=== PATIENT | male | born 1960 | race Caucasian/White ===

== ENCOUNTER 2019-06-12 10:25 | Emergency (ER) | payer MEDICAID, MEDICARE ==
[~2019-06-12] VITALS: Ht 200.7 cm; Wt 81.6 kg
[2019-06-12 11:37] LABS: Basophils # (auto) 0.1 uL; Basophils % (auto) 1.2 % (0.0-2.0); Eosinophils # (auto) 0.2 uL; Eosinophils % (auto) 4.8 % (0.0-7.0); Hematocrit 34.6 % (41.0-53.0); Hemoglobin 11.6 g/dL (13.5-17.5); Lymphocytes # (auto) 1.1 uL; Lymphocytes % (auto) 22.8 % (10.0-50.0); Mean Corpuscular Hemoglobin 31.8 pg (28.0-32.0); Mean Corpuscular Hgb Conc. 33.5 g/dL (32.0-36.0); Mean Corpuscular Volume 94.7 fL (80.0-100.0); Monocytes # (auto) 0.6 uL; Monocytes % (auto) 12.4 % (0.0-12.0); Neutrophils # (auto) 2.8 uL; Neutrophils % (auto) 58.8 % (37.0-80.0); Nucleated Red Blood Cells % 0.1 %; Platelet Count (auto) 224 10^3/uL (140-450); Red Blood Cells 3.66 10^6/uL (4.5-5.90); White Blood Cell 4.8 10^3/uL (4.4-10.8)
[2019-06-12 12:01] LABS: Albumin 2.7 g/dL (3.4-5.0); Calcium 8.3 mg/dL (8.5-10.1); Potassium 3.4 mmol/L (3.5-5.1)
[2019-06-12 12:03] LABS: BUN/Creatinine Ratio 25.4; Bilirubin, Total 0.2 mg/dL (0.2-1.0); Total Protein 6.7 g/dL (6.4-8.2)
[2019-06-12 16:25] LABS: Basophils # (auto) 0 uL; Eosinophils # (auto) 0.2 uL; Hemoglobin 10.9 g/dL (13.5-17.5); Lymphocytes # (auto) 0.9 uL; Lymphocytes % (auto) 20.8 % (10.0-50.0); Mean Corpuscular Hemoglobin 31.3 pg (28.0-32.0); Mean Corpuscular Hgb Conc. 33.1 g/dL (32.0-36.0); Mean Corpuscular Volume 94.3 fL (80.0-100.0); Monocytes # (auto) 0.7 uL; Monocytes % (auto) 15.5 % (0.0-12.0); Neutrophils # (auto) 2.7 uL; Neutrophils % (auto) 58.7 % (37.0-80.0); Nucleated Red Blood Cells % 0.1 %; Platelet Count (auto) 207 10^3/uL (140-450); Red Blood Cells 3.49 10^6/uL (4.5-5.90); Red Cell Distribution Width 14.5 % (11.8-14.3); White Blood Cell 4.6 10^3/uL (4.4-10.8)
[2019-06-12 16:42] LABS: Albumin 2.4 g/dL (3.4-5.0); Magnesium 1.3 mg/dL (1.6-2.6)
[2019-06-12 16:45] LABS: Bilirubin, Total 0.2 mg/dL (0.2-1.0); Total Protein 6.1 g/dL (6.4-8.2)
[2019-06-12 17:03] LABS: Potassium 2.9 mmol/L (3.5-5.1)
[2019-06-12] MEDS ORDERED: POTASSIUM CHL 20 Meq TABLET PO ONE ×2 (19:15)
[2019-06-12 20:16] VITALS: BP 128/89
== END 2019-06-13 00:24 | disposition home or self-care (01) ==
LOC: EDUNIT# 10:25 → EDBD 10:25 → ER 10:45
DX: S96.911A Strain of unspecified muscle and tendon at ankle and foot level, right foot, initial encounter (principal); M25.551 Pain in right hip; E87.6 Hypokalemia; M79.605 Pain in left leg; D64.9 Anemia, unspecified; M81.0 Age-related osteoporosis without current pathological fracture; X58.XXXA Exposure to other specified factors, initial encounter; Y93.89 Activity, other specified; Y92.149 Unspecified place in prison as the place of occurrence of the external cause; Y99.8 Other external cause status
CPT/HCPCS: 36415; 72192; 73502; 73610; 80053; 83735; 84132; 85025; 93005; 93971

== ENCOUNTER 2019-06-17 15:36 | Emergency (ER) | payer MEDICARE, MEDICAID ==
[~2019-06-17] VITALS: Ht 170.2 cm; Wt 95.3 kg
[2019-06-17 17:41] LABS: Hematocrit 30.7 % (41.0-53.0); Hemoglobin 10.3 g/dL (13.5-17.5); Mean Corpuscular Hemoglobin 31.5 pg (28.0-32.0); Mean Corpuscular Hgb Conc. 33.5 g/dL (32.0-36.0); Mean Corpuscular Volume 94.1 fL (80.0-100.0); Platelet Count (auto) 242 10^3/uL (140-450); Red Blood Cells 3.26 10^6/uL (4.5-5.90); Red Cell Distribution Width 15.1 % (11.8-14.3); White Blood Cell 5.2 10^3/uL (4.4-10.8)
[2019-06-17 17:42] LABS: Basophils % (manual) 0 (0.0-2.0); Blast Cells 0; Metamyelocytes % 0; Myelocytes % 0; Promyelocytes % 0; Reactive Lymphocytes 0
[2019-06-17 18:01] LABS: Albumin 2.4 g/dL (3.4-5.0); Calcium 7.7 mg/dL (8.5-10.1); Magnesium 1.4 mg/dL (1.6-2.6)
[2019-06-17 18:04] LABS: BUN/Creatinine Ratio 21.1; Bilirubin, Total 0.2 mg/dL (0.2-1.0)
[2019-06-17 18:11] LABS: Band Neutrophils % (manual) 1; Eosinophils % (manual) 2 (0-7); Lymphocytes % (manual) 16 (10.0-50.0); Monocytes % (manual) 18 (0-12)
[2019-06-17] MEDS ORDERED: POTASSIUM CHL 20 Meq TABLET PO ONE (18:45)
[2019-06-17] MEDS ORDERED: MAGNESIUM SULFATE 1GM/100ML 100 ML IV ONE (18:45)
[2019-06-17 22:00] VITALS: BP 125/71
== END 2019-06-17 23:07 | disposition home or self-care (01) ==
LOC: EDBD 15:36 → ER 15:43
DX: R53.1 Weakness (principal); M25.551 Pain in right hip; M25.571 Pain in right ankle and joints of right foot; E87.8 Other disorders of electrolyte and fluid balance, not elsewhere classified; F17.210 Nicotine dependence, cigarettes, uncomplicated; Z88.0 Allergy status to penicillin; Y04.2XXA Assault by strike against or bumped into by another person, initial encounter; Y93.89 Activity, other specified; Y92.89 Other specified places as the place of occurrence of the external cause; Y99.8 Other external cause status
CPT/HCPCS: 36415; 71045; 72192; 73700; 80053; 83735; 85007; 85027; 96365; 99284; J3475

== ENCOUNTER 2019-07-18 22:36 | Emergency (ER) | payer MEDICARE, MEDICAID ==
[~2019-07-18] VITALS: Ht 190.5 cm; Wt 113.4 kg
[2019-07-18 23:35] LABS: Hematocrit 37.4 % (41.0-53.0); Hemoglobin 12.1 g/dL (13.5-17.5); Mean Corpuscular Hgb Conc. 32.3 g/dL (32.0-36.0); Platelet Count (auto) 208 10^3/uL (140-450); Red Blood Cells 3.89 10^6/uL (4.5-5.90); Red Cell Distribution Width 16.2 % (11.8-14.3); White Blood Cell 5.5 10^3/uL (4.4-10.8)
[2019-07-18] MEDS ORDERED: ALBUTEROL SULF 2.5 MG/0.5ML(0.5%) NEB SOLN NEB STA (23:35)
[2019-07-18 23:37] LABS: Basophils % (manual) 0 (0.0-2.0); Blast Cells 0; Metamyelocytes % 0; Myelocytes % 0; Promyelocytes % 0; Reactive Lymphocytes 0
[2019-07-18] MEDS ORDERED: IPRATROPIUM BROM 0.5 MG/2.5ML INH SOL NEB ONE (23:45)
[2019-07-18 23:49] LABS: Calcium 8.6 mg/dL (8.5-10.1); Magnesium 1.5 mg/dL (1.6-2.6); Potassium 3.6 mmol/L (3.5-5.1)
[2019-07-18 23:54] LABS: Bilirubin, Total 0.2 mg/dL (0.2-1.0); Total Protein 6.9 g/dL (6.4-8.2)
[2019-07-19 00:11] LABS: Band Neutrophils % (manual) 2; Eosinophils % (manual) 3 (0-7); Lymphocytes % (manual) 24 (10.0-50.0); Monocytes % (manual) 17 (0-12)
[2019-07-19 07:35] VITALS: BP 118/74
== END 2019-07-19 08:55 | disposition home or self-care (01) ==
LOC: EDBD 22:36 → ER 22:38
DX: J45.901 Unspecified asthma with (acute) exacerbation (principal); K21.9 Gastro-esophageal reflux disease without esophagitis; F17.210 Nicotine dependence, cigarettes, uncomplicated
CPT/HCPCS: 36415; 71045; 80053; 83735; 83880; 84484; 85007; 85027; 93005; 94640; 99284; J7611; J7644

== ENCOUNTER 2019-07-23 11:54 | Emergency (ER) | payer MEDICARE, MEDICAID ==
[~2019-07-23] VITALS: Ht 188 cm; Wt 99.8 kg
[2019-07-23 12:02] VITALS: BP 148/81
[2019-07-23] MEDS ORDERED: ACETAMINOPHEN 325 MG TAB PO ONE (12:30)
== END 2019-07-23 12:44 | disposition home or self-care (01) ==
LOC: EDBD 11:54 → ER 12:00
DX: K21.9 Gastro-esophageal reflux disease without esophagitis (principal); G44.209 Tension-type headache, unspecified, not intractable; F20.9 Schizophrenia, unspecified; F17.210 Nicotine dependence, cigarettes, uncomplicated; F32.9 Major depressive disorder, single episode, unspecified; Z88.0 Allergy status to penicillin; Z76.0 Encounter for issue of repeat prescription

== ENCOUNTER 2019-08-01 15:28 | Emergency (ER) | payer MEDICAID, MEDICARE ==
[~2019-08-01] VITALS: Ht 200.7 cm; Wt 99.8 kg
[2019-08-01] MEDS ORDERED: KETOROLAC TROMETH 60MG/2ML VIAL IM ONE (15:45)
[2019-08-01 16:01] VITALS: BP 138/80
== END 2019-08-01 20:07 | disposition home or self-care (01) ==
LOC: ER 15:28 → EDBD 15:28 → ER 20:07
DX: G89.4 Chronic pain syndrome (principal); F20.9 Schizophrenia, unspecified; M25.551 Pain in right hip; K21.9 Gastro-esophageal reflux disease without esophagitis; F17.210 Nicotine dependence, cigarettes, uncomplicated; Z88.0 Allergy status to penicillin; Z91.041 Radiographic dye allergy status
CPT/HCPCS: 73502; 96372

== ENCOUNTER 2019-09-29 18:15 | Inpatient (IN) | payer MEDICARE, MEDICAID ==
[~2019-09-29] VITALS: Ht 193 cm; Wt 98.6 kg
[2019-09-29 18:51] LABS: Basophils # (auto) 0.1 10 ^3/uL (0-0.2); Basophils % (auto) 0.7 % (0.0-2.0); Eosinophils # (auto) 0.5 10 ^3/uL (0-0.8); Hematocrit 39.8 % (41.0-53.0); Hemoglobin 12.7 g/dL (13.5-17.5); Lymphocytes # (auto) 1.2 10 ^3/uL (0.4-5.4); Lymphocytes % (auto) 10.3 % (10.0-50.0); Mean Corpuscular Hemoglobin 28.6 pg (28.0-32.0); Mean Corpuscular Hgb Conc. 31.9 g/dL (32.0-36.0); Mean Corpuscular Volume 89.6 fL (80.0-100.0); Monocytes # (auto) 1.4 10 ^3/uL (0-1.3); Monocytes % (auto) 12.4 % (0.0-12.0); Neutrophils # (auto) 8.2 10 ^3/uL (1.6-8.6); Neutrophils % (auto) 72.6 % (37.0-80.0); Platelet Count (auto) 154 10^3/uL (140-450); Red Blood Cells 4.44 10^6/uL (4.5-5.90); Red Cell Distribution Width 16.1 % (11.8-14.3); White Blood Cell 11.3 10^3/uL (4.4-10.8)
[2019-09-29] MEDS ORDERED: ETOMIDATE (2MG/ML) 20ML VIAL IV ONE (19:00)
[2019-09-29] MEDS ORDERED: SUCCINYLCHOLINE CHLORIDE 20 MG/ML 10ML VIAL IV ONE (19:00)
[2019-09-29 19:06] LABS: INR 1.47 (0.9-1.15); Partial Thromboplastin Time 30.7 sec (23.64-32.05)
[2019-09-29 19:07] LABS: Albumin 2.7 g/dL (3.4-5.0); BUN/Creatinine Ratio 18.1; Calcium 8.2 mg/dL (8.5-10.1); Magnesium 1.7 mg/dL (1.6-2.6); Potassium 3.2 mmol/L (3.5-5.1)
[2019-09-29 19:12] LABS: Bilirubin, Total 0.3 mg/dL (0.2-1.0); Total Protein 6.8 g/dL (6.4-8.2)
[2019-09-29] MEDS ORDERED: methylPREDNISolone SOD SUCC 125 MG/2 ML VL IV ONE (19:15)
[2019-09-29] MEDS ORDERED: cefTRIAXone 1GM/50ML D5W 50 ML IV ONE (21:00)
[2019-09-29] MEDS ORDERED: AZITHROMYCIN 500MG/ 250ML 250 ML IV ONE (21:00)
[2019-09-29] MEDS ORDERED: SODIUM CHLORIDE 0.9% 1,000 ML IV SCH (21:14)
[2019-09-29] MEDS ORDERED: ONDANSETRON HCL 4 MG/2 ML VIAL IV PRN (21:15)
[2019-09-29] MEDS ORDERED: ACETAMINOPHEN 500 MG TAB PO PRN (21:15)
[2019-09-29] MEDS ORDERED: DOCUSATE SOD 100 MG CAP PO PRN (21:15)
[2019-09-29] MEDS ORDERED: MORPHINE SULFATE 4 MG/ML SYR/VIAL IV PRN (21:15)
[2019-09-29] MEDS ORDERED: ALBUTEROL SULFATE 90 MCG MDI IN ONE (21:49)
[2019-09-29 21:50] VITALS: BP 183/90
[2019-09-29] MEDS ORDERED: ALBUTEROL SULF HFA 90MCG INH 200DOSE IN SCH ×2 (22:00)
[2019-09-29] MEDS: ALBUTEROL SULF HFA 90MCG INH 200DOSE IN SCH (22:24)
[2019-09-29 23:00] VITALS: BP 145/88
[2019-09-29 23:10] LABS: Urine Bacteria NONE SEEN /hpf (None Seen); Urine Blood Negative /uL (Negative); Urine Specific Gravity 1.007 (1.001-1.035); Urine WBC 2 /hpf (0 - 3)
[2019-09-30] MEDS: POTASSIUM CHL 20MEQ/100ML 100 ML IV SCH ×2 (00:44→03:48)
[2019-09-30] MEDS: MAGNESIUM OXIDE 400 MG TAB PO SCH ×2 (00:44→10:02)
[2019-09-30] MEDS: ALBUTEROL SULF HFA 90MCG INH 200DOSE IN SCH ×2 (06:45→14:18)
[2019-09-30] MEDS: hydrALAZINE HCL 25 MG TAB PO PRN ×3 (07:00→22:00)
[2019-09-30 07:49] LABS: Basophils # (auto) 0 10 ^3/uL (0-0.2); Basophils % (auto) 0.3 % (0.0-2.0); Eosinophils # (auto) 0 10 ^3/uL (0-0.8); Hematocrit 38.2 % (41.0-53.0); Hemoglobin 12.3 g/dL (13.5-17.5); Lymphocytes # (auto) 0.7 10 ^3/uL (0.4-5.4); Lymphocytes % (auto) 5.9 % (10.0-50.0); Mean Corpuscular Hemoglobin 28.8 pg (28.0-32.0); Mean Corpuscular Hgb Conc. 32.3 g/dL (32.0-36.0); Mean Corpuscular Volume 89.2 fL (80.0-100.0); Monocytes # (auto) 0.4 10 ^3/uL (0-1.3); Monocytes % (auto) 3.7 % (0.0-12.0); Neutrophils # (auto) 10.4 10 ^3/uL (1.6-8.6); Neutrophils % (auto) 90.1 % (37.0-80.0); Platelet Count (auto) 160 10^3/uL (140-450); Red Blood Cells 4.28 10^6/uL (4.5-5.90); Red Cell Distribution Width 16.3 % (11.8-14.3); White Blood Cell 11.5 10^3/uL (4.4-10.8)
[2019-09-30 08:00] VITALS: BP 151/83
[2019-09-30 08:05] LABS: Albumin 2.6 g/dL (3.4-5.0); Calcium 8.2 mg/dL (8.5-10.1); Magnesium 1.9 mg/dL (1.6-2.6); Potassium 3.6 mmol/L (3.5-5.1)
[2019-09-30 08:08] LABS: BUN/Creatinine Ratio 21.1; Bilirubin, Total 0.2 mg/dL (0.2-1.0)
[2019-09-30] MEDS ORDERED: ASCORBIC ACID 1,000 MG TAB PO SCH (10:00)
[2019-09-30] MEDS ORDERED: ZINC SULFATE 220mg CAP or TAB PO SCH (10:00)
[2019-09-30] MEDS: CHOLECALCIFEROL (VITD3) 1,000IU=25mCg TAB PO SCH (10:03)
[2019-09-30] MEDS: ENOXAPARIN SOD 40 MG/0.4 ML SYRINGE SC SCH (10:03)
[2019-09-30 13:20] VITALS: BP 139/84
[2019-09-30] MEDS ORDERED: HYDR1CAP27 PO (16:34)
[2019-09-30] MEDS ORDERED: OLAN1TAB19 PO (16:34)
[2019-09-30] MEDS ORDERED: DIPH25CA66 PO (16:34)
[2019-09-30] MEDS ORDERED: MIRT1TAB38 PO (16:34)
[2019-09-30] MEDS ORDERED: MAGN400T21 PO (16:34)
[2019-09-30] MEDS ORDERED: OMEP20TA PO (16:34)
[2019-09-30] MEDS ORDERED: DIVA500T13 PO (16:34)
[2019-09-30] MEDS ORDERED: RISP2TAB59 PO (16:34)
[2019-09-30 17:00] VITALS: BP 155/71
[2019-09-30] MEDS ORDERED: diphenhdrAMINE HCL 25 MG CAP PO PRN (18:00)
[2019-09-30] MEDS: IPRATROPIUM BROM 0.5 MG/2.5ML INH SOL NEB SCH (18:45)
[2019-09-30] MEDS: ALBUTEROL SULF 2.5 MG/0.5ML(0.5%) NEB SOLN NEB SCH (18:45)
[2019-09-30] MEDS: ACETYLCYSTEINE 20%(200MG/ML) SOL 4ML NEB SCH (18:45)
[2019-09-30 19:48] LABS: Alcohol, Urine < 3.0 mg/dL (0-5); Amphetamine Screen, Urine NEGATIVE (NEGATIVE); Barbiturate Scree,Urine NEGATIVE (NEGATIVE); Benzodiazephine Screen, Urine NEGATIVE (NEGATIVE); Cannabinoid Screen, Urine NEGATIVE (NEGATIVE); Cocaine Screen, Urine NEGATIVE (NEGATIVE); Opiate Scree,Urine NEGATIVE (NEGATIVE); Phencyclidine Screen, Urine NEGATIVE (NEGATIVE)
[2019-09-30] MEDS ORDERED: AZITHROMYCIN 500MG/D5WorNS 250ml IV SCH (21:00)
[2019-09-30] MEDS ORDERED: FUROSEMIDE 40 MG/4 ML VIAL IV ONE (21:00)
[2019-09-30] MEDS ORDERED: AZITHROMYCIN 250 MG TAB PO SCH (21:00)
[2019-09-30 21:59] VITALS: BP 166/88
[2019-09-30] MEDS: methylPREDNISolone SOD SUCC 40 MG/ML VL IV SCH (21:59)
[2019-09-30] MEDS ORDERED: ACETYLCYSTEINE 20%(200MG/ML) SOL 4ML NEB SCH (22:00)
[2019-09-30] MEDS: OLANZapine 5 MG TAB PO SCH (22:00)
[2019-09-30] MEDS: MIRTAZAPINE 30 MG TAB PO SCH (22:01)
[2019-09-30] MEDS ORDERED: FUROSEMIDE 100 MG/10ML VIAL IV ONE (22:30)
[2019-10-01] MEDS: ACETYLCYSTEINE 20%(200MG/ML) SOL 4ML NEB SCH ×4 (00:41→18:40)
[2019-10-01] MEDS: ALBUTEROL SULF 2.5 MG/0.5ML(0.5%) NEB SOLN NEB SCH ×4 (00:41→18:39)
[2019-10-01] MEDS: IPRATROPIUM BROM 0.5 MG/2.5ML INH SOL NEB SCH ×4 (00:41→18:40)
[2019-10-01] MEDS: risperiDONE 1 MG TAB PO PRN ×2 (02:29→20:24)
[2019-10-01 05:00] VITALS: BP 137/59
[2019-10-01] MEDS: methylPREDNISolone SOD SUCC 40 MG/ML VL IV SCH ×3 (05:44→21:33)
[2019-10-01] MEDS: FUROSEMIDE 100 MG/10ML VIAL IV SCH ×2 (05:45→17:19)
[2019-10-01 06:15] LABS: Basophils # (auto) 0 10 ^3/uL (0-0.2); Basophils % (auto) 0.2 % (0.0-2.0); Eosinophils # (auto) 0 10 ^3/uL (0-0.8); Hematocrit 37.2 % (41.0-53.0); Hemoglobin 11.9 g/dL (13.5-17.5); Lymphocytes # (auto) 0.6 10 ^3/uL (0.4-5.4); Lymphocytes % (auto) 7.5 % (10.0-50.0); Mean Corpuscular Hemoglobin 28.6 pg (28.0-32.0); Mean Corpuscular Hgb Conc. 31.8 g/dL (32.0-36.0); Mean Corpuscular Volume 89.8 fL (80.0-100.0); Monocytes # (auto) 0.4 10 ^3/uL (0-1.3); Monocytes % (auto) 4.6 % (0.0-12.0); Neutrophils # (auto) 6.9 10 ^3/uL (1.6-8.6); Neutrophils % (auto) 87.7 % (37.0-80.0); Platelet Count (auto) 167 10^3/uL (140-450); Red Blood Cells 4.14 10^6/uL (4.5-5.90); White Blood Cell 7.8 10^3/uL (4.4-10.8)
[2019-10-01 06:32] LABS: BUN/Creatinine Ratio 27.3; Calcium 8.2 mg/dL (8.5-10.1); Potassium 3.5 mmol/L (3.5-5.1)
[2019-10-01 06:58] LABS: Folate (Folic Acid) 18.69 ng/mL (5.38-24)
[2019-10-01 08:59] VITALS: BP 144/83
[2019-10-01] MEDS: ENOXAPARIN SOD 40 MG/0.4 ML SYRINGE SC SCH (09:09)
[2019-10-01] MEDS: levoFLOXacin 750MG 150 ML IV SCH (09:09)
[2019-10-01] MEDS: PANTOPRAZOLE 40 MG TAB PO SCH (09:09)
[2019-10-01] MEDS: CHOLECALCIFEROL (VITD3) 1,000IU=25mCg TAB PO SCH (09:10)
[2019-10-01] MEDS: MAGNESIUM OXIDE 400 MG TAB PO SCH (09:10)
[2019-10-01] MEDS ORDERED: CYANOCOBALAMIN (B-12) 1000 MCG/1 ML VIAL SUBCUT ONE (10:45)
[2019-10-01] MEDS: hydrALAZINE HCL 25 MG TAB PO PRN (11:39)
[2019-10-01 12:38] VITALS: BP 157/86
[2019-10-01 17:00] VITALS: BP 145/93
[2019-10-01 21:00] VITALS: BP 152/94
[2019-10-01] MEDS: OLANZapine 5 MG TAB PO SCH (21:32)
[2019-10-01] MEDS: MIRTAZAPINE 30 MG TAB PO SCH (21:34)
[2019-10-02] VITALS (7 sets, daily range): BP systolic 137–158; BP diastolic 62–94
[2019-10-02] MEDS: ACETYLCYSTEINE 20%(200MG/ML) SOL 4ML NEB SCH ×4 (00:26→18:50)
[2019-10-02] MEDS: ALBUTEROL SULF 2.5 MG/0.5ML(0.5%) NEB SOLN NEB SCH ×4 (00:26→18:49)
[2019-10-02] MEDS: IPRATROPIUM BROM 0.5 MG/2.5ML INH SOL NEB SCH ×4 (00:26→18:49)
[2019-10-02] MEDS: hydrOXYzine 25 MG TAB or CAP PO PRN ×2 (04:15→21:36)
[2019-10-02] MEDS: methylPREDNISolone SOD SUCC 40 MG/ML VL IV SCH ×3 (05:31→21:34)
[2019-10-02] MEDS: FUROSEMIDE 100 MG/10ML VIAL IV SCH ×2 (05:33→17:30)
[2019-10-02 07:06] LABS: RPR Non Reactive (Non Reactive)
[2019-10-02] MEDS: CHOLECALCIFEROL (VITD3) 1,000IU=25mCg TAB PO SCH (10:03)
[2019-10-02] MEDS: levoFLOXacin 750MG 150 ML IV SCH (10:03)
[2019-10-02] MEDS: CYANOCOBALAMIN 500 MCG TAB PO SCH (10:04)
[2019-10-02] MEDS: ENOXAPARIN SOD 40 MG/0.4 ML SYRINGE SC SCH (10:04)
[2019-10-02] MEDS: PANTOPRAZOLE 40 MG TAB PO SCH (10:04)
[2019-10-02] MEDS: MAGNESIUM OXIDE 400 MG TAB PO SCH (10:05)
[2019-10-02] MEDS: MORPHINE SULF INJ 2 MG/ML SYRINGE 1ML IV PRN (10:05)
[2019-10-02] MEDS ORDERED: VANCOMYCIN PER PHARMACY 0 MG IV SCH (11:45)
[2019-10-02] MEDS ORDERED: VANCOMYCIN 1GM/250ML 250 ML IV ONE (12:00)
[2019-10-02] MEDS: risperiDONE 1 MG TAB PO PRN (15:07)
[2019-10-02] MEDS: MEROPENEM 1GM IVPB 100 ML IV SCH ×2 (15:29→22:20)
[2019-10-02] MEDS: VANCOMYCIN 1GM/250ML 250 ML IV SCH (19:54)
[2019-10-02] MEDS: MIRTAZAPINE 30 MG TAB PO SCH (21:35)
[2019-10-02] MEDS: OLANZapine 5 MG TAB PO SCH (21:35)
[2019-10-03] MEDS ORDERED: TEMAZEPAM 15 MG CAP PO ONE (00:45)
[2019-10-03] MEDS ORDERED: LOPERAMIDE HCL 2 MG CAP PO PRN (00:45)
[2019-10-03] MEDS: VANCOMYCIN 1GM/250ML 250 ML IV SCH ×2 (03:59→12:50)
[2019-10-03 05:00] VITALS: BP 139/64
[2019-10-03 05:44] LABS: Basophils # (auto) 0 10 ^3/uL (0-0.2); Basophils % (auto) 0.3 % (0.0-2.0); Eosinophils # (auto) 0 10 ^3/uL (0-0.8); Hematocrit 39.1 % (41.0-53.0); Hemoglobin 12.6 g/dL (13.5-17.5); Lymphocytes # (auto) 0.9 10 ^3/uL (0.4-5.4); Lymphocytes % (auto) 11.7 % (10.0-50.0); Mean Corpuscular Hemoglobin 28.5 pg (28.0-32.0); Mean Corpuscular Hgb Conc. 32.1 g/dL (32.0-36.0); Mean Corpuscular Volume 88.7 fL (80.0-100.0); Monocytes # (auto) 0.5 10 ^3/uL (0-1.3); Monocytes % (auto) 7.1 % (0.0-12.0); Neutrophils # (auto) 6.1 10 ^3/uL (1.6-8.6); Neutrophils % (auto) 80.9 % (37.0-80.0); Platelet Count (auto) 188 10^3/uL (140-450); Red Blood Cells 4.41 10^6/uL (4.5-5.90); Red Cell Distribution Width 16.1 % (11.8-14.3); White Blood Cell 7.5 10^3/uL (4.4-10.8)
[2019-10-03] MEDS: ALBUTEROL SULF 2.5 MG/0.5ML(0.5%) NEB SOLN NEB SCH ×4 (05:59→18:30)
[2019-10-03] MEDS: ACETYLCYSTEINE 20%(200MG/ML) SOL 4ML NEB SCH ×4 (05:59→18:31)
[2019-10-03] MEDS: IPRATROPIUM BROM 0.5 MG/2.5ML INH SOL NEB SCH ×4 (05:59→18:31)
[2019-10-03 06:14] LABS: Albumin 2.6 g/dL (3.4-5.0); Calcium 8.2 mg/dL (8.5-10.1)
[2019-10-03 06:17] LABS: BUN/Creatinine Ratio 35.6; Bilirubin, Total 0.4 mg/dL (0.2-1.0); Total Protein 6.3 g/dL (6.4-8.2)
[2019-10-03] MEDS: MEROPENEM 1GM IVPB 100 ML IV SCH ×2 (06:22→13:48)
[2019-10-03] MEDS: FUROSEMIDE 100 MG/10ML VIAL IV SCH ×2 (06:22→18:22)
[2019-10-03] MEDS: methylPREDNISolone SOD SUCC 40 MG/ML VL IV SCH ×3 (06:22→21:48)
[2019-10-03 08:45] VITALS: BP_SYST 151; BP_SYST 165; BP_DIAS 104; BP_DIAS 113
[2019-10-03] MEDS: ENOXAPARIN SOD 40 MG/0.4 ML SYRINGE SC SCH (08:54)
[2019-10-03] MEDS: levoFLOXacin 750MG 150 ML IV SCH (08:54)
[2019-10-03] MEDS: CHOLECALCIFEROL (VITD3) 1,000IU=25mCg TAB PO SCH (08:55)
[2019-10-03] MEDS: MAGNESIUM OXIDE 400 MG TAB PO SCH (08:56)
[2019-10-03] MEDS: PANTOPRAZOLE 40 MG TAB PO SCH (08:57)
[2019-10-03] MEDS: hydrALAZINE HCL 25 MG TAB PO PRN (08:57)
[2019-10-03] MEDS: CYANOCOBALAMIN 500 MCG TAB PO SCH (08:57)
[2019-10-03 09:13] LABS: Hepatitis B Surface Antibody Positive
[2019-10-03 09:30] VITALS: BP 147/74
[2019-10-03 09:40] LABS: Hepatitis A Total Antibody Negative
[2019-10-03 10:05] LABS: Hepatitis B Core Total AB Negative; Hepatitis B Surface Antigen Negative (Negative); Hepatitis C Antibody Negative (Negative)
[2019-10-03] MEDS: risperiDONE 1 MG TAB PO PRN ×2 (10:20→21:47)
[2019-10-03 12:45] VITALS: BP 142/84
[2019-10-03] MEDS: hydrOXYzine 25 MG TAB or CAP PO PRN (15:35)
[2019-10-03 16:58] VITALS: BP 144/91
[2019-10-03] MEDS: OLANZapine 5 MG TAB PO SCH (21:48)
[2019-10-03] MEDS: MIRTAZAPINE 30 MG TAB PO SCH (21:48)
[2019-10-03 22:00] VITALS: BP 142/75
[2019-10-04] MEDS: IPRATROPIUM BROM 0.5 MG/2.5ML INH SOL NEB SCH ×4 (00:38→17:55)
[2019-10-04] MEDS: ALBUTEROL SULF 2.5 MG/0.5ML(0.5%) NEB SOLN NEB SCH ×4 (00:38→17:55)
[2019-10-04] MEDS: ACETYLCYSTEINE 20%(200MG/ML) SOL 4ML NEB SCH ×4 (00:42→17:55)
[2019-10-04 05:30] VITALS: BP 122/67
[2019-10-04] MEDS ORDERED: FUROSEMIDE 40 MG/4 ML VIAL ONE (06:30)
[2019-10-04] MEDS: FUROSEMIDE 100 MG/10ML VIAL IV SCH ×2 (06:46→18:19)
[2019-10-04] MEDS: methylPREDNISolone SOD SUCC 40 MG/ML VL IV SCH ×2 (06:46→21:31)
[2019-10-04 09:00] VITALS: BP_SYST 134; BP_SYST 137; BP_DIAS 74
[2019-10-04] MEDS: levoFLOXacin 750MG 150 ML IV SCH (09:29)
[2019-10-04] MEDS: CHOLECALCIFEROL (VITD3) 1,000IU=25mCg TAB PO SCH (09:29)
[2019-10-04] MEDS: CYANOCOBALAMIN 500 MCG TAB PO SCH (09:30)
[2019-10-04] MEDS: MAGNESIUM OXIDE 400 MG TAB PO SCH (09:30)
[2019-10-04] MEDS: PANTOPRAZOLE 40 MG TAB PO SCH (09:30)
[2019-10-04] MEDS: ENOXAPARIN SOD 40 MG/0.4 ML SYRINGE SC SCH (09:30)
[2019-10-04] MEDS ORDERED: ERTAPENEM SOD INJ 1 GM in SODIUM CHL 0.9% 50 ML IV ONE (12:00)
[2019-10-04 13:12] VITALS: BP 149/72
[2019-10-04 17:00] VITALS: BP 128/83
[2019-10-04] MEDS: risperiDONE 1 MG TAB PO PRN (20:01)
[2019-10-04] MEDS: hydrOXYzine 25 MG TAB or CAP PO PRN (20:01)
[2019-10-04] MEDS: OLANZapine 5 MG TAB PO SCH (21:32)
[2019-10-04] MEDS: MIRTAZAPINE 30 MG TAB PO SCH (21:33)
[2019-10-04 22:00] VITALS: BP 149/80
[2019-10-04] MEDS: MORPHINE SULF INJ 2 MG/ML SYRINGE 1ML IV PRN (22:59)
[2019-10-05] MEDS: IPRATROPIUM BROM 0.5 MG/2.5ML INH SOL NEB SCH ×3 (00:15→11:31)
[2019-10-05] MEDS: ALBUTEROL SULF 2.5 MG/0.5ML(0.5%) NEB SOLN NEB SCH ×3 (00:15→11:31)
[2019-10-05] MEDS: ACETYLCYSTEINE 20%(200MG/ML) SOL 4ML NEB SCH ×3 (00:15→11:31)
[2019-10-05] MEDS: FUROSEMIDE 100 MG/10ML VIAL IV SCH (06:18)
[2019-10-05 09:00] VITALS: BP 160/80
[2019-10-05] MEDS: CHOLECALCIFEROL (VITD3) 1,000IU=25mCg TAB PO SCH (09:57)
[2019-10-05] MEDS: ENOXAPARIN SOD 40 MG/0.4 ML SYRINGE SC SCH (09:57)
[2019-10-05] MEDS: methylPREDNISolone SOD SUCC 40 MG/ML VL IV SCH (09:57)
[2019-10-05] MEDS: risperiDONE 1 MG TAB PO PRN (09:58)
[2019-10-05] MEDS: hydrOXYzine 25 MG TAB or CAP PO PRN (09:58)
[2019-10-05] MEDS: PANTOPRAZOLE 40 MG TAB PO SCH (09:58)
[2019-10-05] MEDS: hydrALAZINE HCL 25 MG TAB PO PRN (09:58)
[2019-10-05] MEDS: CYANOCOBALAMIN 500 MCG TAB PO SCH (09:58)
[2019-10-05] MEDS ORDERED: ERTAPENEM SOD INJ 1 GM in SODIUM CHL 0.9% 50 ML IV SCH (10:00)
[2019-10-05] MEDS: MAGNESIUM OXIDE 400 MG TAB PO SCH (10:00)
[2019-10-05 13:00] VITALS: BP 157/93
== END 2019-10-05 13:50 | DRG 177 ==
LOC: ER 18:15 → EDBD 18:15 → OVERFLOW 18:16 → TELE-EAST 23:00 → EAST 23:20 → TELE-EAST 09-30 00:27 → CENTRAL 09-30 13:13
PROVIDERS: ADMIT Hospitalist; ATTEND Internal Medicine
DX: J15.8 Pneumonia due to other specified bacteria (principal); J96.01 Acute respiratory failure with hypoxia; J45.902 Unspecified asthma with status asthmaticus; Z16.12 Extended spectrum beta lactamase (ESBL) resistance; E44.0 Moderate protein-calorie malnutrition; J20.9 Acute bronchitis, unspecified; Z03.818 Encounter for observation for suspected exposure to other biological agents ruled out; F17.210 Nicotine dependence, cigarettes, uncomplicated; F20.9 Schizophrenia, unspecified; J43.9 Emphysema, unspecified; Z71.6 Tobacco abuse counseling; Z88.0 Allergy status to penicillin; Z91.041 Radiographic dye allergy status; Z68.26 Body mass index [BMI] 26.0-26.9, adult
CPT/HCPCS: 36415; 36600; 71045; 71046; 71250; 80048; 80053; 80202; 80307; 81001; 82607; 82728; 82746; 82805; 83605; 83615; 83735; 83880; 84443; 84484; 85025; 85379; 85610; 85730; 86141; 86592; 86703; 86704; 86706; 86708; 86738; 86803; 87040; 87070; 87077; 87186; 87205; 87278; 87340; 87804; 87880; 93005; 93306; 94640; 96365; 96367; 96375; G0378; J0696; J1335; J1956; J2185; J3480

== ENCOUNTER 2019-10-25 22:05 | Inpatient (IN) | payer MEDICARE, MEDICAID ==
[~2019-10-25] VITALS: Ht 200.7 cm; Wt 8.0 kg
[~2019-10-25 22:05] MED LIST: DIPH25CA66 PO; DIVA500T13 PO; HYDR1CAP27 PO; MAGN400T21 PO; MIRT1TAB38 PO; OLAN1TAB19 PO; OMEP20TA PO; RISP2TAB59 PO
[2019-10-25 23:20] LABS: Basophils # (auto) 0 10 ^3/uL (0-0.2); Basophils % (auto) 0.4 % (0.0-2.0); Eosinophils # (auto) 0.5 10 ^3/uL (0-0.8); Eosinophils % (auto) 9.3 % (0.0-7.0); Hematocrit 35.5 % (41.0-53.0); Hemoglobin 11.4 g/dL (13.5-17.5); Lymphocytes # (auto) 1.4 10 ^3/uL (0.4-5.4); Lymphocytes % (auto) 28.2 % (10.0-50.0); Mean Corpuscular Hemoglobin 28.6 pg (28.0-32.0); Mean Corpuscular Hgb Conc. 32.2 g/dL (32.0-36.0); Mean Corpuscular Volume 88.8 fL (80.0-100.0); Monocytes # (auto) 0.7 10 ^3/uL (0-1.3); Monocytes % (auto) 13.5 % (0.0-12.0); Neutrophils # (auto) 2.4 10 ^3/uL (1.6-8.6); Neutrophils % (auto) 48.6 % (37.0-80.0); Nucleated Red Blood Cells % 0.3 %; Platelet Count (auto) 233 10^3/uL (140-450); Red Blood Cells 3.99 10^6/uL (4.5-5.90)
[2019-10-25 23:32] LABS: Albumin 2.8 g/dL (3.4-5.0); BUN/Creatinine Ratio 28.9; Calcium 8.3 mg/dL (8.5-10.1); Potassium 3.8 mmol/L (3.5-5.1)
[2019-10-25 23:35] LABS: Bilirubin, Total 0.4 mg/dL (0.2-1.0); Total Protein 6.3 g/dL (6.4-8.2)
[2019-10-26 00:40] LABS: Urine Bacteria NONE SEEN /hpf (None Seen); Urine Blood Negative /uL (Negative); Urine Specific Gravity 1.018 (1.001-1.035); Urine WBC <1 /hpf (0 - 3)
[2019-10-26] MEDS ORDERED: LORazepam 2MG/ML-1ML VIAL IV ONE (00:45)
[2019-10-26] MEDS ORDERED: CLINDAMYCIN 600MG IV 50 ML IV ONE (00:45)
[2019-10-26] MEDS ORDERED: levoFLOXacin 750MG 150 ML IV ONE (02:00)
[2019-10-26] MEDS ORDERED: SODIUM CHLORIDE 0.9% 1,000 ML IV SCH (02:28)
[2019-10-26] MEDS ORDERED: NITROGLYCERIN 0.4 MG SL TAB SL PRN (02:30)
[2019-10-26] MEDS ORDERED: ACETAMINOPHEN 500 MG TAB PO PRN (02:30)
[2019-10-26] MEDS ORDERED: MORPHINE SULF INJ 2 MG/ML SYRINGE 1ML IV PRN (02:30)
[2019-10-26] MEDS ORDERED: diphenhdrAMINE HCL 25 MG CAP PO PRN (03:00)
[2019-10-26] MEDS ORDERED: hydrOXYzine 25 MG TAB or CAP PO PRN (03:05)
--- NOTE | 2019-10-26 05:05 | NUR ---
MS admit from ER JAIR KEY admitted to tele/MS after SBAR received. Patient oriented to Jessi Monroe, primary RN, unit, room, bed, and unit policies regarding patient care and visiting hours. Patient weighed by bed scale and encouraged to call if they need something. All questions and concerns addressed, patient verbalized understanding. Note:
[2019-10-26] MEDS ORDERED: ALBUTEROL SULF HFA 90MCG INH 200DOSE IN SCH ×2 (06:00)
--- NOTE | 2019-10-26 06:41 | NUR ---
PAGED HOSPITALIST FOR PAIN MEDICATION. PATIENT REPORTS PAIN 7/10 TO LEFT HIP AND LEFT LEG.
--- NOTE | 2019-10-26 07:30 | NUR ---
Opening Shift Note Assumed care of patient, awake and alert. No S/S of distress/SOB. Instructed on POC and to call for assist PRN, will continue to monitor for changes Q1hr and PRN. Fall precautions in place per safety protocol.
--- NOTE | 2019-10-26 07:37 | NUR ---
RECONCILE MEDS NOTE PATIENT IS UNABLE TO CONFIRM CURRENT HOME MEDICATIONS.
[2019-10-26] MEDS: IBUPROFEN 800 MG TAB PO PRN ×2 (07:58→20:21)
[2019-10-26 08:00] VITALS: BP 134/77
[2019-10-26] MEDS ORDERED: PATIENTS OWN MEDICATION (Omeprazole (Gnp Omeprazole) 20 MG) PO SCH (10:00)
[2019-10-26] MEDS ORDERED: DOXYCYCLINE 100MG/250ML 250 ML IV SCH (10:00)
[2019-10-26] MEDS: PANTOPRAZOLE 40 MG/10 ML VIAL INJ IV SCH (10:10)
[2019-10-26] MEDS: ZINC SULFATE 220mg CAP or TAB PO SCH (10:10)
[2019-10-26] MEDS: levoFLOXacin 500MG 100 ML IV SCH (10:10)
[2019-10-26] MEDS: CHOLECALCIFEROL (VITD3) 1,000UNIT=25mCg TAB PO SCH (10:11)
[2019-10-26] MEDS: ASCORBIC ACID 1,000 MG TAB PO SCH (10:11)
[2019-10-26] MEDS: MAGNESIUM OXIDE 400 MG TAB PO SCH ×2 (10:11→22:05)
[2019-10-26] MEDS: ENOXAPARIN SOD 40 MG/0.4 ML SYRINGE SC SCH (10:12)
--- NOTE | 2019-10-26 10:30 | NUR ---
IV insertion IV access obtained, via clean sterile technique by inserting 20 gauge catheter at L FA after 1 attempt by TRENTON Meza. IV secured properly. No trauma to site. Patient tolerated procedure well.
--- NOTE | 2019-10-26 12:00 | NUR ---
COVID Patient covid results back negative. Patient will be transferred to room 290 A with TRENTON Stanley. Report endorsed to Jaden at this time. Will transfer patient after lunch.
--- NOTE | 2019-10-26 13:58 | NUR ---
Patient transferred to room 290A. No distress, sob, or pain noted at this time.
--- NOTE | 2019-10-26 13:58 | NUR ---
Telemetry admit from COVID UNIT JAIR KEY admitted to Telemetry unit after SBAR received. Patient oriented to PATRIA ZAMORA RN primary RN, unit, room, bed, and unit policies regarding patient care and visiting hours. Patient now on continuous telemetry monitoring, telemetry reading on arrival to unit is SR. Patient placed on bedside oxygen, weighed by bedscale and encouraged to call if they need something. All questions and concerns addressed, patient verbalized understanding.
--- NOTE | 2019-10-26 19:38 | NUR ---
RECEIVED PATIENT FROM DAY SHIFT RN. PATIENT RESTING IN BED WITH BLANKET OVER HIS HEAD. NO S/S OF DISTRESS NOTED. DENIED PAIN AT THIS TIME, REFUSED TO ANSWER QUESTIONS. POC INSTRUCTED AND ENCOURAGED PATIENT TO CALL FOR [employer] SPECIALIST IF NEEDED. BED IN LOWEST POSITION WITH SIDE RAILS UP X 2. CALL JAVIER WITHIN REACH. ALARM ON. CONTINUE TO MONITOR FOR CHANGES Q1H AND PRN.
--- NOTE | 2019-10-26 20:00 | NUR ---
PATIENT SUDDENLY GOT UP AND WALKED TO BATHROOM. HE URINATED ON THE FLOOR IN THE BATHROOM AND BACK TO THE BED. URINAL OFFERED TO PATIENT FOR THE NEXT TIME. PATIENT GOWN CHANGED. THEN PATIENT STARTED TO C/O PAIN AND WOULD LIKE TO HAVE PAIN MEDICATION. WILL COME BACK FOR THE MEDICATION. CONTINUE TO MONITOR.
--- NOTE | 2019-10-26 20:13 | NUR ---
MD FIGUEROA AT BEDSIDE.
[2019-10-26] MEDS ORDERED: TAMSULOSIN HYDROCHLORIDE 0.4 MG CAP PO ONE (20:15)
--- NOTE | 2019-10-26 20:23 | NUR ---
MEDICATED PATIENT FOR PAIN @ 03/21. CONTINUE TO MONITOR.
--- NOTE | 2019-10-26 20:40 | NUR ---
PATIENT JUST CALLED AND C/O HIP PAIN AND WOULD LIKE TO HAVE CHECK. WILL PAGE HOSPITALIST. CONTINUE TO MONITOR.
--- NOTE | 2019-10-26 20:45 | NUR ---
HOSPITALIST Called/paged Dr. PHELPS called re: PATIENT C/O HIP PAIN . Waiting for call back. Continue care.
--- NOTE | 2019-10-26 20:47 | NUR ---
HOSPITALIST returned call MD PHELPS returned call, updated on patient status and reason for call, orders received. HIP XR. Continue care.
--- NOTE | 2019-10-26 21:20 | NUR ---
PATIENT RESTING IN BED WITH EYES CLOSED. CONTINUE TO MONITOR.
--- NOTE | 2019-10-26 21:20 | NUR ---
REASSESSED PAIN, PATIENT RESTING IN BED WITH EYES CLOSED. NO S/S OF PAIN NOTED. CONTINUE TO MONITOR.
[2019-10-26 21:47] VITALS: BP 129/90
[2019-10-26] MEDS: OLANZapine 5 MG TAB PO SCH (22:04)
[2019-10-26] MEDS: MIRTAZAPINE 30 MG TAB PO SCH (22:05)
[2019-10-26] MEDS: risperiDONE 1 MG TAB PO PRN (22:05)
--- NOTE | 2019-10-26 22:21 | NUR ---
PATIENT AGITATED WITH HIP XR, MEDICATED PATIENT ORDERED. CALM PATIENT DOWN AND TOLD PATIENT THAT RADIOLOGY IS BUSY NOW, WILL BE HERE SOON POSSIBLE FOR HIS HIP XR. PATIENT JUST KEPT TALKING WITHOUT LISTENING. CONTINUE TO MONITOR.
--- NOTE | 2019-10-26 23:31 | NUR ---
REPORT GIVEN TO FIDELIA CHOWDHURY.
[2019-10-27 05:00] VITALS: BP 141/77
[2019-10-27 06:28] LABS: Basophils # (auto) 0 10 ^3/uL (0-0.2); Basophils % (auto) 0.3 % (0.0-2.0); Eosinophils # (auto) 0.4 10 ^3/uL (0-0.8); Eosinophils % (auto) 9.2 % (0.0-7.0); Hematocrit 38.4 % (41.0-53.0); Hemoglobin 12.4 g/dL (13.5-17.5); Lymphocytes % (auto) 21.7 % (10.0-50.0); Mean Corpuscular Hemoglobin 28.9 pg (28.0-32.0); Mean Corpuscular Hgb Conc. 32.2 g/dL (32.0-36.0); Mean Corpuscular Volume 89.9 fL (80.0-100.0); Monocytes # (auto) 0.6 10 ^3/uL (0-1.3); Monocytes % (auto) 12.8 % (0.0-12.0); Neutrophils # (auto) 2.6 10 ^3/uL (1.6-8.6); Nucleated Red Blood Cells % 0.1 %; Platelet Count (auto) 253 10^3/uL (140-450); Red Blood Cells 4.27 10^6/uL (4.5-5.90); Red Cell Distribution Width 16.9 % (11.8-14.3); White Blood Cell 4.6 10^3/uL (4.4-10.8)
[2019-10-27 06:43] LABS: Albumin 2.7 g/dL (3.4-5.0); Calcium 8.1 mg/dL (8.5-10.1); Potassium 4.3 mmol/L (3.5-5.1)
[2019-10-27 06:46] LABS: BUN/Creatinine Ratio 24.7; Bilirubin, Total 0.5 mg/dL (0.2-1.0)
[2019-10-27] MEDS: IBUPROFEN 800 MG TAB PO PRN ×2 (08:05→20:37)
[2019-10-27 09:00] VITALS: BP 143/73
[2019-10-27] MEDS: levoFLOXacin 500MG 100 ML IV SCH (09:16)
[2019-10-27] MEDS: PANTOPRAZOLE 40 MG/10 ML VIAL INJ IV SCH (09:16)
[2019-10-27] MEDS: ZINC SULFATE 220mg CAP or TAB PO SCH (09:16)
[2019-10-27] MEDS: CHOLECALCIFEROL (VITD3) 1,000UNIT=25mCg TAB PO SCH (09:17)
[2019-10-27] MEDS: ENOXAPARIN SOD 40 MG/0.4 ML SYRINGE SC SCH (09:17)
[2019-10-27] MEDS: ASCORBIC ACID 1,000 MG TAB PO SCH (09:17)
[2019-10-27] MEDS: MAGNESIUM OXIDE 400 MG TAB PO SCH ×2 (09:17→22:10)
[2019-10-27 13:00] VITALS: BP 155/87
--- NOTE | 2019-10-27 13:00 | NUR ---
MD FIGUEROA PAGED RE: PAIN MEDICATION. PT REQUESTING DIFFERENT PAIN MEDICATION BECAUSE "IT IS NOT WORKING, I STILL HAVE A LOT OF PAIN, LIKE 10,000" AWAITING CALL BACK AT THIS TIME.
--- NOTE | 2019-10-27 13:02 | NUR ---
RETURNED PAGE. NEW ORDERS RECEIVED.
[2019-10-27] MEDS ORDERED: HYDROcodone-ACET 5/325MG TAB PO ONE (13:15)
[2019-10-27 17:00] VITALS: BP 139/71
[2019-10-27] MEDS ORDERED: TAMSULOSIN HYDROCHLORIDE 0.4 MG CAP PO SCH (18:00)
--- NOTE | 2019-10-27 19:42 | NUR ---
Opening Shift Note Assumed care of patient after receiving report from TRENTON Stanley. Patient awake and alert resting in bed comfortably with no S/S of distress/SOB or pain. Call light within reach with bed in lowest positionx2 side rails and HOB >30 degrees. Instructed on POC and to call for assist PRN, will continue to monitor for changes Q1hr and PRN.
--- NOTE | 2019-10-27 20:20 | NUR ---
Patient refused seizure precautions Patient has history of seizures, day RN stated patient refused side rail padding during day shift. Upon entering room and noting side rails were not padded per seizure precaution, patient educated on need for padding as precaution. Patient state he has not had seizure since 2014 and does not need the padding. Patient educated and verbalized understanding and continued to refuse seizure precaution padding. Will continue to monitor.
[2019-10-27 22:00] VITALS: BP 136/63
[2019-10-27] MEDS: MIRTAZAPINE 30 MG TAB PO SCH (22:10)
[2019-10-27] MEDS: OLANZapine 5 MG TAB PO SCH (22:11)
[2019-10-28] MEDS: risperiDONE 1 MG TAB PO PRN ×2 (00:47→12:04)
[2019-10-28 05:00] VITALS: BP 143/83
[2019-10-28 08:00] VITALS: BP 152/81
[2019-10-28 08:21] VITALS: BP 152/81
[2019-10-28] MEDS: IBUPROFEN 800 MG TAB PO PRN (08:28)
--- NOTE | 2019-10-28 09:40 | NUR ---
PATIENT REFUSING LOVENOX AND PADDING ON SIDE OF BED FOR SZ PRECAUTION.
[2019-10-28] MEDS: MAGNESIUM OXIDE 400 MG TAB PO SCH (09:41)
[2019-10-28] MEDS: levoFLOXacin 500MG 100 ML IV SCH (09:41)
[2019-10-28] MEDS: PANTOPRAZOLE 40 MG/10 ML VIAL INJ IV SCH (09:41)
[2019-10-28] MEDS: ZINC SULFATE 220mg CAP or TAB PO SCH (09:41)
[2019-10-28] MEDS: ASCORBIC ACID 1,000 MG TAB PO SCH ×2 (09:42→10:00)
[2019-10-28] MEDS: ENOXAPARIN SOD 40 MG/0.4 ML SYRINGE SC SCH (09:42)
[2019-10-28] MEDS: CHOLECALCIFEROL (VITD3) 1,000UNIT=25mCg TAB PO SCH (09:42)
--- NOTE | 2019-10-28 12:20 | NUR ---
DR WANG BEDSIDE WITH PATIENT DISCUSSING PLAN OF CARE
[2019-10-28 12:46] VITALS: BP 142/81
--- NOTE | 2019-10-28 12:47 | NUR ---
NOTIFIED DR Fabian WANG PATIENT IS REFUSING TO GO BACK TO PREVIOUS BOARD AND CARE. PER DR WANG, NEW SS CONSULT PLACED TO FIND NEW BOARD AND CARE
[2019-10-28 14:15] VITALS: BP 142/81
--- NOTE | 2019-10-28 15:30 | NUR ---
Discharge instructions given as ordered. Encourage to follow up with PMD as instructed, phone # and address provided to schedule f/u appt. w/ PCP and also with psychiatrist. All questions and concerns addressed. Patient verbalized understanding. Medication reconciliation form completed and copy given to patient. No home medications being held in Pharmacy, and patient refused vaccine. Both IVs removed with catheter intact and pressure dressing applied. Telemetry unit returned to ICU. Taxi voucher provided to take patient to [facility] at [address] [place] [address]. Patient taken to vehicle via wheelchair with all personal belongings, accompanied by staff member. No distress noted at time of departure.
--- NOTE | 2019-10-28 16:21 | NUR ---
Assessment Patient is a 59-year-old male with mental disorders. Per patient he lives at [facility]. Per patient he needs assistance. Patient informed me has schizophrenia and Bipolar disorder. Patient informed he is on parole and after he was [facility] he was placed at [facility] in the [facility]. Patient has a walker for home use. Patient informed me he receives food stamps with an amount of [id number]. Patient informed me he apply for SSI. Per patient he will return home to his prior living arrangements post discharge and will need a taxi voucher. I spoke with the junior linux administrator at [facility] Manisha ). Per Manisha patient has been at her home since June 02, 2019 when he was paroled from [facility]. Per Manisha patient can return to [facility] on discharge. Manisha informed me patient is non-compliant. Per Manisha patient will need a taxi voucher on discharge to [address] [place] [address]. Manisha verbalized understanding and agreed to discharge plan back to facility. Addendum: 10/28/19 at 1621 by ALBANIA AGRAWAL Amended: Links added.
[2019-10-31] MEDS ORDERED: DOXYCYCLINE 100 MG TAB/CAP PO SCH (10:00)
== END 2019-10-28 15:30 | disposition home or self-care (01) | DRG 202 ==
LOC: ER 22:05 → TELE 22:06 → EAST 10-26 05:39 → TELE-EAST 10-26 10:51 → TELE-WESTW 10-26 13:57
PROVIDERS: ADMIT Hospitalist; ATTEND Family Medicine
DX: J20.9 Acute bronchitis, unspecified (principal); E44.0 Moderate protein-calorie malnutrition; Z03.818 Encounter for observation for suspected exposure to other biological agents ruled out; F17.210 Nicotine dependence, cigarettes, uncomplicated; Z91.041 Radiographic dye allergy status; N40.0 Benign prostatic hyperplasia without lower urinary tract symptoms; A49.1 Streptococcal infection, unspecified site; G40.909 Epilepsy, unspecified, not intractable, without status epilepticus; F20.9 Schizophrenia, unspecified; Z88.0 Allergy status to penicillin; Z82.3 Family history of stroke; K21.9 Gastro-esophageal reflux disease without esophagitis; F32.9 Major depressive disorder, single episode, unspecified
CPT/HCPCS: 36415; 71045; 73502; 80053; 81001; 82728; 83605; 83735; 85025; 87040; 87804; 87880; 96365; 96367; 96375; C9113; G0378; J1956; J3490; J7060

== ENCOUNTER 2019-11-16 13:25 | Emergency (ER) | payer MEDICAID, MEDICARE ==
[~2019-11-16] VITALS: Ht 170.2 cm; Wt 94.3 kg
[2019-11-16 14:24] LABS: Hematocrit 38.6 % (41.0-53.0); Hemoglobin 12.7 g/dL (13.5-17.5); Mean Corpuscular Hemoglobin 29.4 pg (28.0-32.0); Mean Corpuscular Hgb Conc. 32.8 g/dL (32.0-36.0); Mean Corpuscular Volume 89.8 fL (80.0-100.0); Platelet Count (auto) 194 10^3/uL (140-450); White Blood Cell 6.2 10^3/uL (4.4-10.8)
[2019-11-16 14:30] LABS: Basophils % (manual) 0 (0.0-2.0); Blast Cells 0; Metamyelocytes % 0; Myelocytes % 0; Promyelocytes % 0; Reactive Lymphocytes 0
[2019-11-16 14:39] LABS: Albumin 3.1 g/dL (3.4-5.0); Anion Gap 3 (5-15); Blood Alcohol < 3.0 mg/dL (0-5); Blood Urea Nitrogen 19 mg/dL (7-18); Calcium 8.8 mg/dL (8.5-10.1); Carbon Dioxide 28 mmol/L (21-32); Chloride 111 mmol/L (98-107); GFR African American 135 mL/min; GFR Non-African American 112 mL/min; Glucose 76 mg/dL (74-106); Potassium 4.2 mmol/L (3.5-5.1); Sodium 142 mmol/L (136-145)
[2019-11-16 14:41] LABS: Acetaminophen < 2.0 ug/mL (10-30); Band Neutrophils % (manual) 1; Eosinophils % (manual) 1 (0-7); Lymphocytes % (manual) 19 (10.0-50.0); Monocytes % (manual) 26 (0-12); Salicylate 2.6 mg/dL (2.8-20.0)
[2019-11-16 14:42] LABS: Alanine Aminotransferase 18 U/L (16-61); Alkaline Phosphatase 153 U/L (45-117); Aspartate Aminotransferase 14 U/L (15-37); Bilirubin, Total 0.3 mg/dL (0.2-1.0); Total Protein 6.8 g/dL (6.4-8.2)
[2019-11-16] MEDS ORDERED: OLANZapine 5 MG TAB PO ONE (15:45)
[2019-11-16 16:03] LABS: Urine Bacteria FEW /hpf (None Seen); Urine Blood Negative /uL (Negative); Urine Specific Gravity 1.011 (1.001-1.035); Urine WBC 6 /hpf (0 - 3)
[2019-11-16 16:12] LABS: Alcohol, Urine < 3.0 mg/dL (0-10); Amphetamine Screen, Urine NEGATIVE (NEGATIVE); Barbiturate Scree,Urine NEGATIVE (NEGATIVE); Benzodiazephine Screen, Urine NEGATIVE (NEGATIVE); Cannabinoid Screen, Urine NEGATIVE (NEGATIVE); Cocaine Screen, Urine NEGATIVE (NEGATIVE); Opiate Scree,Urine NEGATIVE (NEGATIVE); Phencyclidine Screen, Urine NEGATIVE (NEGATIVE)
[2019-11-16] MEDS ORDERED: IBUPROFEN 800 MG TAB PO ONE (16:30)
[2019-11-16] MEDS ORDERED: LORazepam 0.5 MG TAB PO ONE (21:30)
[2019-11-16] MEDS ORDERED: NICOTINE 7MG/24HR TOPICAL PATCH TD ONE (21:30)
[2019-11-16] MEDS ORDERED: chlorproMAZINE HCL 25 MG TAB PO PRN (22:45)
[2019-11-17] MEDS ORDERED: IBUPROFEN 800 MG TAB PO ONE (02:30)
[2019-11-17] MEDS ORDERED: FAMOTIDINE 20 MG TAB PO ONE (05:45)
[2019-11-17] MEDS: chlorproMAZINE HCL 25 MG TAB PO SCH ×3 (06:00→21:36)
[2019-11-17] MEDS: busPIRone HCL 10 MG TAB PO SCH ×3 (07:32→21:36)
[2019-11-17] MEDS: HALOPERIDOL LACTATE 5 MG/ML INJ VIAL IM PRN ×2 (09:09→15:46)
[2019-11-17] MEDS: LORazepam 2MG/ML-1ML VIAL IM PRN ×2 (09:09→15:46)
[2019-11-17] MEDS ORDERED: IBUPROFEN 600 MG TAB PO ONE (09:45)
[2019-11-17 21:22] VITALS: BP 166/92
== END 2019-11-17 21:22 | disposition still patient (30) ==
LOC: ER 13:25
DX: F20.9 Schizophrenia, unspecified (principal); M16.11 Unilateral primary osteoarthritis, right hip; M46.06 Spinal enthesopathy, lumbar region; K21.9 Gastro-esophageal reflux disease without esophagitis; F17.210 Nicotine dependence, cigarettes, uncomplicated; Z79.899 Other long term (current) drug therapy; Z88.0 Allergy status to penicillin; Z88.8 Allergy status to other drugs, medicaments and biological substances; Z91.013 Allergy to seafood
CPT/HCPCS: 36415; 73502; 80053; 80307; 80320; 80329; 81001; 85007; 85027; 96372; 99285; J1630; J2060; Q0161; U0003

== ENCOUNTER 2020-09-02 17:30 | Emergency (ER) | payer MEDICAID ==
[~2020-09-02] VITALS: Ht 200.7 cm; Wt 93.0 kg
[~2020-09-02 17:30] MED LIST changes: +MAGN241.4 PO; -MAGN400T21 PO; +RISP2TAB28 PO; -RISP2TAB59 PO
[2020-09-02 19:10] LABS: Basophils # (auto) 0 10 ^3/uL (0-0.2); Basophils % (auto) 0.7 % (0.0-2.0); Eosinophils # (auto) 0.2 10 ^3/uL (0-0.8); Eosinophils % (auto) 5.3 % (0.0-7.0); Hematocrit 38.9 % (41.0-53.0); Hemoglobin 13.1 g/dL (13.5-17.5); Lymphocytes # (auto) 1.2 10 ^3/uL (0.4-5.4); Lymphocytes % (auto) 26.3 % (10.0-50.0); Mean Corpuscular Hemoglobin 30.5 pg (28.0-32.0); Mean Corpuscular Hgb Conc. 33.8 g/dL (32.0-36.0); Mean Corpuscular Volume 90.4 fL (80.0-100.0); Monocytes # (auto) 0.7 10 ^3/uL (0-1.3); Monocytes % (auto) 15.9 % (0.0-12.0); Neutrophils # (auto) 2.3 10 ^3/uL (1.6-8.6); Neutrophils % (auto) 51.8 % (37.0-80.0); Nucleated Red Blood Cells % 0.1 %; Platelet Count (auto) 136 10^3/uL (140-450); Red Blood Cells 4.31 10^6/uL (4.5-5.90); Red Cell Distribution Width 14.5 % (11.8-14.3); White Blood Cell 4.5 10^3/uL (4.4-10.8)
[2020-09-02 19:27] LABS: Urine Bacteria NONE SEEN /hpf (None Seen); Urine Blood TRACE /uL (Negative); Urine Specific Gravity 1.015 (1.001-1.035); Urine WBC <1 /hpf (0 - 3)
[2020-09-02 19:44] LABS: Alcohol, Urine < 3.0 mg/dL (0-10); Amphetamine Screen, Urine NEGATIVE (NEGATIVE); Barbiturate Scree,Urine NEGATIVE (NEGATIVE); Benzodiazephine Screen, Urine NEGATIVE (NEGATIVE); Cannabinoid Screen, Urine NEGATIVE (NEGATIVE); Cocaine Screen, Urine NEGATIVE (NEGATIVE); Opiate Scree,Urine NEGATIVE (NEGATIVE); Phencyclidine Screen, Urine NEGATIVE (NEGATIVE)
[2020-09-02 19:45] LABS: Albumin 3.1 g/dL (3.4-5.0); BUN/Creatinine Ratio 25.6; Calcium 8.2 mg/dL (8.5-10.1); Potassium 3.6 mmol/L (3.5-5.1)
[2020-09-02 19:48] LABS: Bilirubin, Total 0.3 mg/dL (0.2-1.0); Total Protein 7.2 g/dL (6.4-8.2)
[2020-09-02 19:59] LABS: Salicylate < 1.7 mg/dL (2.8-20.0)
[2020-09-02 20:01] LABS: Acetaminophen < 2.0 ug/mL (10-30)
[2020-09-03] MEDS ORDERED: SULFAMETHOX W/TRIMETH(800/160MG) DS TAB PO ONE (00:15)
[2020-09-03] MEDS ORDERED: HYDROcodone-ACET 5/325MG TAB PO ONE (08:15)
[2020-09-03] MEDS ORDERED: LORazepam 2MG/ML-1ML VIAL IM ONE ×3 (08:15→22:15)
[2020-09-03] MEDS ORDERED: OLANZapine 5 MG TAB PO ONE (10:00)
[2020-09-03] MEDS ORDERED: LORazepam 0.5 MG TAB PO ONE (14:00)
[2020-09-03] MEDS ORDERED: HALOPERIDOL LACTATE 5 MG/ML INJ VIAL ONE (17:29)
[2020-09-03] MEDS ORDERED: diphenhdrAMINE HCL 50 MG/1 ML VL ONE (17:29)
[2020-09-03] MEDS ORDERED: diphenhdrAMINE HCL 50 MG/1 ML VL IM ONE ×3 (17:30→22:15)
[2020-09-03] MEDS ORDERED: HALOPERIDOL LACTATE 5 MG/ML INJ VIAL IM ONE ×2 (17:30)
[2020-09-04] MEDS ORDERED: HYDROcodone-ACET 5/325MG TAB PO ONE (05:15)
[2020-09-04] MEDS ORDERED: LORazepam 2MG/ML-1ML VIAL IM ONE (08:00)
[2020-09-04] MEDS ORDERED: HALOPERIDOL LACTATE 5 MG/ML INJ VIAL IM ONE (08:00)
[2020-09-04] MEDS ORDERED: diphenhdrAMINE HCL 50 MG/1 ML VL IM ONE (08:00)
[2020-09-04] MEDS: risperiDONE 1 MG TAB PO PRN ×2 (08:44→21:46)
[2020-09-04] MEDS: hydrOXYzine 25 MG TAB or CAP PO SCH ×2 (09:24→21:42)
[2020-09-04] MEDS: MIRTAZAPINE 30 MG TAB PO SCH (21:43)
[2020-09-04] MEDS: OLANZapine 5 MG TAB PO SCH (21:43)
[2020-09-05] MEDS: risperiDONE 1 MG TAB PO PRN ×2 (05:18→21:32)
[2020-09-05] MEDS: hydrOXYzine 25 MG TAB or CAP PO SCH ×2 (09:44→21:32)
[2020-09-05] MEDS ORDERED: ACETAMINOPHEN 500 MG TAB PO ONE ×2 (11:15→21:30)
[2020-09-05] MEDS: MIRTAZAPINE 30 MG TAB PO SCH (21:32)
[2020-09-05] MEDS: OLANZapine 5 MG TAB PO SCH (21:32)
[2020-09-06] MEDS ORDERED: diphenhdrAMINE HCL 50 MG/1 ML VL IM ONE (08:15)
[2020-09-06] MEDS ORDERED: HALOPERIDOL LACTATE 5 MG/ML INJ VIAL IM ONE (08:15)
[2020-09-06] MEDS ORDERED: LORazepam 2MG/ML-1ML VIAL IM ONE (08:15)
[2020-09-06] MEDS: hydrOXYzine 25 MG TAB or CAP PO SCH ×2 (12:02→22:10)
[2020-09-06] MEDS ORDERED: ACETAMINOPHEN 325 MG TAB PO ONE ×3 (14:48→22:15)
[2020-09-06 19:20] VITALS: BP 128/75
[2020-09-06] MEDS: risperiDONE 1 MG TAB PO PRN (22:08)
[2020-09-06] MEDS: OLANZapine 5 MG TAB PO SCH (22:09)
[2020-09-06] MEDS: MIRTAZAPINE 30 MG TAB PO SCH (22:10)
== END 2020-09-06 22:00 | disposition home or self-care (01) ==
LOC: ER 17:30
DX: F20.9 Schizophrenia, unspecified (principal); F32.9 Major depressive disorder, single episode, unspecified; K21.9 Gastro-esophageal reflux disease without esophagitis; Z87.891 Personal history of nicotine dependence; Z20.822 Contact with and (suspected) exposure to COVID-19
CPT/HCPCS: 36415; 71250; 80053; 80307; 80329; 81001; 85025; 87077; 87186; 87205; 87426; 96372; 99285; C9803; J1200; J1630; J2060; U0003

== ENCOUNTER 2020-10-08 08:28 | Inpatient (IN) | payer MEDICARE, MEDICAID ==
[~2020-10-08] VITALS: Ht 200.7 cm; Wt 104.1 kg
[2020-10-08 09:23] LABS: Hemoglobin 13.5 g/dL (13.5-17.5); Mean Corpuscular Hemoglobin 29.9 pg (28.0-32.0); Mean Corpuscular Hgb Conc. 32.8 g/dL (32.0-36.0); Mean Corpuscular Volume 91.2 fL (80.0-100.0); Platelet Count (auto) 199 10^3/uL (140-450); Red Cell Distribution Width 16.2 % (11.8-14.3); White Blood Cell 6.3 10^3/uL (4.4-10.8)
[2020-10-08 09:32] LABS: Basophils % (manual) 0 (0.0-2.0); Blast Cells 0; Myelocytes % 0; Promyelocytes % 0; Reactive Lymphocytes 0
[2020-10-08 09:35] LABS: Alanine Aminotransferase 10 U/L (16-61); Albumin 2.6 g/dL (3.4-5.0); Anion Gap 7 (5-15); Blood Urea Nitrogen 20 mg/dL (7-18); Calcium 7.8 mg/dL (8.5-10.1); Carbon Dioxide 23 mmol/L (21-32); Chloride 111 mmol/L (98-107); Glucose 94 mg/dL (74-106); Lipase 17 U/L (73-393); Magnesium 1.7 mg/dL (1.6-2.6); Potassium 3.7 mmol/L (3.5-5.1); Sodium 141 mmol/L (136-145)
[2020-10-08 09:39] LABS: INR 2.92 (0.9-1.15); Partial Thromboplastin Time 36.3 sec (23.0-31.2)
[2020-10-08 09:40] LABS: Alkaline Phosphatase 78 U/L (45-117); Aspartate Aminotransferase 8 U/L (15-37); BUN/Creatinine Ratio 19.8; Bilirubin, Total 0.3 mg/dL (0.2-1.0); GFR African American 97 mL/min; GFR Non-African American 80 mL/min; Total Protein 6.2 g/dL (6.4-8.2)
[2020-10-08] MEDS ORDERED: MORPHINE SULFATE 4 MG/ML SYR/VIAL IV ONE (10:45)
[2020-10-08] MEDS ORDERED: ONDANSETRON HCL 4 MG/2 ML VIAL IV ONE (10:45)
[2020-10-08] MEDS ORDERED: MORPHINE SULFATE 4 MG/ML SYR/VIAL ONE (10:47)
[2020-10-08] MEDS ORDERED: ONDANSETRON HCL 4 MG/2 ML VIAL ONE (10:47)
[2020-10-08] MEDS ORDERED: levoFLOXacin 500MG 100 ML IV ONE (11:00)
[2020-10-08] MEDS ORDERED: SODIUM CHLORIDE 0.9% 1,000 ML IV ONE (11:00)
[2020-10-08 11:13] LABS: Band Neutrophils % (manual) 38; Eosinophils % (manual) 2 (0-7); Lymphocytes % (manual) 15 (10.0-50.0); Metamyelocytes % 2; Monocytes % (manual) 25 (0-12)
[2020-10-08] MEDS ORDERED: LORazepam 2MG/ML-1ML VIAL IV ONE (12:15)
[2020-10-08] MEDS ORDERED: NITROGLYCERIN 0.4 MG SL TAB SL PRN (18:00)
[2020-10-08] MEDS ORDERED: MORPHINE SULF INJ 2 MG/ML SYRINGE 1ML IV PRN ×2 (18:00→18:30)
[2020-10-08] MEDS ORDERED: ALBUTEROL SULF 2.5 MG/0.5ML(0.5%) NEB SOLN NEB PRN (18:30)
[2020-10-08] MEDS ORDERED: ONDANSETRON HCL 4 MG/2 ML VIAL IV PRN (18:30)
[2020-10-08] MEDS ORDERED: traMADol HCL 50 MG TAB PO PRN (18:30)
[2020-10-08] MEDS ORDERED: ACETAMINOPHEN 500 MG TAB PO PRN (18:30)
[2020-10-08 18:58] VITALS: BP 105/49
[2020-10-08] MEDS: SODIUM CHLORIDE 0.9% 1,000 ML IV SCH (19:04)
[2020-10-08] MEDS: FAMOTIDINE (10MG/ML) 2ML VL IV SCH (19:09)
[2020-10-08 19:36] LABS: INR 3.36 (0.9-1.15)
[2020-10-08] MEDS: risperiDONE 1 MG TAB PO PRN (20:38)
[2020-10-08] MEDS: metroNIDAZOLE 500MG/100ML 100 ML IV SCH (21:52)
[2020-10-08] MEDS: MIRTAZAPINE 30 MG TAB PO SCH (21:53)
[2020-10-08] MEDS: MAGNESIUM OXIDE 400 MG TAB PO SCH (21:53)
[2020-10-08] MEDS: OLANZapine 5 MG TAB PO SCH (21:53)
[2020-10-08 22:00] VITALS: BP 104/68
[2020-10-08] MEDS ORDERED: hydrOXYzine 25 MG TAB or CAP PO SCH (22:00)
[2020-10-09 00:04] VITALS: BP 104/68
[2020-10-09] MEDS: SODIUM CHLORIDE 0.9% 1,000 ML IV SCH ×2 (04:30→14:06)
[2020-10-09 05:00] VITALS: BP 135/75
[2020-10-09] MEDS: metroNIDAZOLE 500MG/100ML 100 ML IV SCH ×3 (05:20→21:18)
[2020-10-09] MEDS: FAMOTIDINE (10MG/ML) 2ML VL IV SCH ×2 (05:58→19:00)
[2020-10-09 08:14] LABS: Albumin 2.3 g/dL (3.4-5.0); Calcium 7.9 mg/dL (8.5-10.1)
[2020-10-09 08:17] LABS: BUN/Creatinine Ratio 19.7; Bilirubin, Total 0.3 mg/dL (0.2-1.0); Total Protein 5.5 g/dL (6.4-8.2)
[2020-10-09 09:00] VITALS: BP 118/66
[2020-10-09] MEDS: MAGNESIUM OXIDE 400 MG TAB PO SCH ×2 (10:06→21:18)
[2020-10-09] MEDS: levoFLOXacin 500MG 100 ML IV SCH (10:06)
[2020-10-09] MEDS ORDERED: GASTROGRAFIN 120 ML SOL ONE (10:16)
[2020-10-09 13:00] VITALS: BP 129/68
[2020-10-09 17:00] VITALS: BP 137/74
[2020-10-09] MEDS: OLANZapine 5 MG TAB PO SCH (21:17)
[2020-10-09] MEDS: MIRTAZAPINE 30 MG TAB PO SCH (21:18)
[2020-10-09] MEDS: risperiDONE 1 MG TAB PO PRN (21:18)
[2020-10-09 21:50] VITALS: BP 123/83
[2020-10-10] MEDS: SODIUM CHLORIDE 0.9% 1,000 ML IV SCH ×4 (03:56→20:30)
[2020-10-10 05:00] VITALS: BP 131/76
[2020-10-10] MEDS: FAMOTIDINE (10MG/ML) 2ML VL IV SCH ×2 (05:56→18:22)
[2020-10-10] MEDS: metroNIDAZOLE 500MG/100ML 100 ML IV SCH ×3 (05:56→22:07)
[2020-10-10 06:18] LABS: Basophils # (auto) 0 10 ^3/uL (0-0.2); Basophils % (auto) 0.3 % (0.0-2.0); Eosinophils # (auto) 0.2 10 ^3/uL (0-0.8); Eosinophils % (auto) 3.7 % (0.0-7.0); Hematocrit 38.4 % (41.0-53.0); Hemoglobin 12.7 g/dL (13.5-17.5); Lymphocytes # (auto) 1.4 10 ^3/uL (0.4-5.4); Lymphocytes % (auto) 27.6 % (10.0-50.0); Mean Corpuscular Hemoglobin 30.2 pg (28.0-32.0); Mean Corpuscular Volume 91.5 fL (80.0-100.0); Monocytes # (auto) 0.8 10 ^3/uL (0-1.3); Monocytes % (auto) 16.7 % (0.0-12.0); Neutrophils # (auto) 2.6 10 ^3/uL (1.6-8.6); Neutrophils % (auto) 51.7 % (37.0-80.0); Nucleated Red Blood Cells % 0.1 %; Platelet Count (auto) 175 10^3/uL (140-450); Red Blood Cells 4.19 10^6/uL (4.5-5.90); Red Cell Distribution Width 16.2 % (11.8-14.3); White Blood Cell 5.1 10^3/uL (4.4-10.8)
[2020-10-10 06:42] LABS: Potassium 4.1 mmol/L (3.5-5.1)
[2020-10-10 06:49] LABS: INR 4.92 (0.9-1.15)
[2020-10-10 06:50] LABS: Albumin 2.5 g/dL (3.4-5.0); BUN/Creatinine Ratio 12.7; Bilirubin, Total 0.3 mg/dL (0.2-1.0); Calcium 8.3 mg/dL (8.5-10.1); Total Protein 5.8 g/dL (6.4-8.2)
[2020-10-10 09:00] VITALS: BP 125/74
[2020-10-10] MEDS: MAGNESIUM OXIDE 400 MG TAB PO SCH ×2 (09:20→22:24)
[2020-10-10] MEDS: levoFLOXacin 500MG 100 ML IV SCH (09:21)
[2020-10-10] MEDS ORDERED: PHYTONADIONE (VIT K)10 MG/ML 1ML VIAL SUBCUT ONE ×2 (12:30→12:45)
[2020-10-10 13:00] VITALS: BP 137/79
[2020-10-10 22:00] VITALS: BP 124/69
[2020-10-10] MEDS: OLANZapine 5 MG TAB PO SCH (22:23)
[2020-10-10] MEDS: risperiDONE 1 MG TAB PO PRN (22:23)
[2020-10-10] MEDS: MIRTAZAPINE 30 MG TAB PO SCH (22:24)
[2020-10-11 05:00] VITALS: BP 130/78
[2020-10-11] MEDS: FAMOTIDINE (10MG/ML) 2ML VL IV SCH (05:36)
[2020-10-11] MEDS: metroNIDAZOLE 500MG/100ML 100 ML IV SCH ×2 (05:36→14:00)
[2020-10-11 07:17] LABS: Hematocrit 35.4 % (41.0-53.0); Hemoglobin 11.7 g/dL (13.5-17.5); Mean Corpuscular Hemoglobin 30.1 pg (28.0-32.0); Mean Corpuscular Hgb Conc. 33.1 g/dL (32.0-36.0); Mean Corpuscular Volume 90.8 fL (80.0-100.0); Platelet Count (auto) 156 10^3/uL (140-450); Red Cell Distribution Width 16.2 % (11.8-14.3); White Blood Cell 4.6 10^3/uL (4.4-10.8)
[2020-10-11 07:19] LABS: Basophils % (manual) 0 (0.0-2.0); Blast Cells 0; Metamyelocytes % 0; Myelocytes % 0; Promyelocytes % 0; Reactive Lymphocytes 0
[2020-10-11 07:29] LABS: BUN/Creatinine Ratio 7.7; Calcium 8.3 mg/dL (8.5-10.1); INR 1.42 (0.9-1.15); Partial Thromboplastin Time 34.5 sec (23.0-31.2); Potassium 4.2 mmol/L (3.5-5.1)
[2020-10-11] MEDS: risperiDONE 1 MG TAB PO PRN (07:59)
[2020-10-11 08:30] LABS: Band Neutrophils % (manual) 1; Eosinophils % (manual) 1 (0-7); Lymphocytes % (manual) 26 (10.0-50.0); Monocytes % (manual) 24 (0-12)
[2020-10-11 08:41] VITALS: BP 123/69
[2020-10-11] MEDS: levoFLOXacin 500MG 100 ML IV SCH (09:51)
[2020-10-11] MEDS: MAGNESIUM OXIDE 400 MG TAB PO SCH (10:44)
[2020-10-11 12:27] VITALS: BP 136/78
[2020-10-11 12:34] VITALS: BP 136/65
[2020-10-11 13:52] LABS: Hematocrit 37.7 % (41.0-53.0); Hemoglobin 12.3 g/dL (13.5-17.5); Mean Corpuscular Hemoglobin 29.7 pg (28.0-32.0); Mean Corpuscular Hgb Conc. 32.7 g/dL (32.0-36.0); Mean Corpuscular Volume 91.1 fL (80.0-100.0); Platelet Count (auto) 174 10^3/uL (140-450); Red Blood Cells 4.14 10^6/uL (4.5-5.90); Red Cell Distribution Width 16.1 % (11.8-14.3); White Blood Cell 4.5 10^3/uL (4.4-10.8)
[2020-10-11 13:56] LABS: Band Neutrophils % (manual) 0; Basophils % (manual) 0 (0.0-2.0); Blast Cells 0; Myelocytes % 0; Promyelocytes % 0; Reactive Lymphocytes 0
[2020-10-11 14:15] LABS: Potassium 4.2 mmol/L (3.5-5.1)
[2020-10-11 14:19] LABS: Eosinophils % (manual) 3 (0-7); Lymphocytes % (manual) 18 (10.0-50.0); Metamyelocytes % 1; Monocytes % (manual) 21 (0-12)
[2020-10-11 14:22] LABS: Albumin 2.6 g/dL (3.4-5.0); BUN/Creatinine Ratio 4.8; Bilirubin, Total 0.5 mg/dL (0.2-1.0); Calcium 8.3 mg/dL (8.5-10.1)
== END 2020-10-11 14:13 | disposition home or self-care (01) | DRG 388 ==
LOC: EDUNIT# 08:28 → ER 08:28 → EDBD 08:28 → TELE 17:52 → TELE-WESTW 21:20 → TELE-CENTR 10-09 05:25
PROVIDERS: ADMIT Internal Medicine; ATTEND Internal Medicine
DX: K56.600 Partial intestinal obstruction, unspecified as to cause (principal); N17.0 Acute kidney failure with tubular necrosis; D68.9 Coagulation defect, unspecified; K86.1 Other chronic pancreatitis; J98.11 Atelectasis; E44.0 Moderate protein-calorie malnutrition; Z20.822 Contact with and (suspected) exposure to COVID-19; J44.9 Chronic obstructive pulmonary disease, unspecified; F20.9 Schizophrenia, unspecified; N40.0 Benign prostatic hyperplasia without lower urinary tract symptoms; F31.9 Bipolar disorder, unspecified; K21.9 Gastro-esophageal reflux disease without esophagitis; G40.909 Epilepsy, unspecified, not intractable, without status epilepticus; I12.9 Hypertensive chronic kidney disease with stage 1 through stage 4 chronic kidney disease, or unspecified chronic kidney disease; N18.9 Chronic kidney disease, unspecified; Z80.0 Family history of malignant neoplasm of digestive organs; Z82.3 Family history of stroke; Z87.891 Personal history of nicotine dependence; Z68.25 Body mass index [BMI] 25.0-25.9, adult; Z88.8 Allergy status to other drugs, medicaments and biological substances; Z88.6 Allergy status to analgesic agent; Z91.041 Radiographic dye allergy status; Z88.0 Allergy status to penicillin; Z91.013 Allergy to seafood
CPT/HCPCS: 36415; 71045; 74176; 74250; 80048; 80053; 80320; 82150; 83605; 83615; 83690; 83735; 84484; 85007; 85025; 85027; 85384; 85610; 85730; 87040; 87426; 93005; 96365; 96375; 99291; G0378; J1956; J2405; J3430; J3490

== ENCOUNTER 2020-10-21 19:48 | Emergency (ER) | payer MEDICARE, MEDICAID ==
[~2020-10-21] VITALS: Ht 200.7 cm; Wt 94.3 kg
[2020-10-21] MEDS ORDERED: CEPHALEXIN 250 MG CAP PO ONE (20:00)
[2020-10-21 21:21] LABS: Acetaminophen < 2.0 ug/mL (10-30); Salicylate 3.2 mg/dL (2.8-20.0)
[2020-10-22] MEDS ORDERED: IBUPROFEN 800 MG TAB PO ONE ×2 (09:30→17:15)
[2020-10-22] MEDS ORDERED: HALOPERIDOL LACTATE 5 MG/ML INJ VIAL IM ONE (09:30)
[2020-10-22] MEDS ORDERED: LORazepam 2MG/ML-1ML VIAL IM ONE (09:30)
[2020-10-22] MEDS ORDERED: diphenhdrAMINE HCL 50 MG/1 ML VL IM ONE (09:30)
[2020-10-22] MEDS: risperiDONE 1 MG TAB PO SCH ×2 (17:20→22:31)
[2020-10-22] MEDS ORDERED: OLANZapine 5 MG TAB PO SCH (22:00)
[2020-10-22 22:11] VITALS: BP 144/76
== END 2020-10-22 22:19 | disposition home or self-care (01) ==
LOC: ER 19:48 → EDBD 19:48 → ER 10-22 22:19
DX: F20.9 Schizophrenia, unspecified (principal); F32.9 Major depressive disorder, single episode, unspecified; F41.0 Panic disorder [episodic paroxysmal anxiety]; L03.313 Cellulitis of chest wall; F17.210 Nicotine dependence, cigarettes, uncomplicated; I10 Essential (primary) hypertension; Z90.89 Acquired absence of other organs
CPT/HCPCS: 36415; 80320; 80329; 96372; 99285; J1200; J1630; J2060

== ENCOUNTER 2020-12-21 20:15 | Emergency (ER) | payer MEDICARE, MEDICAID ==
[~2020-12-21] VITALS: Ht 193 cm; Wt 101.2 kg
[2020-12-21] MEDS ORDERED: LORazepam 2MG/ML-1ML VIAL IV ONE (20:30)
[2020-12-21 20:46] LABS: Basophils # (auto) 0.1 10 ^3/uL (0-0.2); Basophils % (auto) 1.2 % (0.0-2.0); Eosinophils # (auto) 0.4 10 ^3/uL (0-0.8); Eosinophils % (auto) 7.8 % (0.0-7.0); Hematocrit 37.5 % (41.0-53.0); Hemoglobin 12.5 g/dL (13.5-17.5); Lymphocytes # (auto) 1.6 10 ^3/uL (0.4-5.4); Mean Corpuscular Hemoglobin 30.7 pg (28.0-32.0); Mean Corpuscular Hgb Conc. 33.2 g/dL (32.0-36.0); Mean Corpuscular Volume 92.3 fL (80.0-100.0); Monocytes # (auto) 0.7 10 ^3/uL (0-1.3); Monocytes % (auto) 12.7 % (0.0-12.0); Neutrophils # (auto) 2.6 10 ^3/uL (1.6-8.6); Neutrophils % (auto) 49.3 % (37.0-80.0); Red Blood Cells 4.06 10^6/uL (4.5-5.90); Red Cell Distribution Width 15.2 % (11.8-14.3); White Blood Cell 5.4 10^3/uL (4.4-10.8)
[2020-12-21 20:48] VITALS: BP 121/76
[2020-12-21 21:01] LABS: Urine Bacteria NONE SEEN /hpf (None Seen); Urine Blood Negative /uL (Negative); Urine Specific Gravity 1.013 (1.001-1.035); Urine WBC <1 /hpf (0 - 3)
[2020-12-21 21:05] LABS: Albumin 3.2 g/dL (3.4-5.0); BUN/Creatinine Ratio 27.5; Calcium 8.3 mg/dL (8.5-10.1)
[2020-12-21 21:08] LABS: Bilirubin, Total 0.2 mg/dL (0.2-1.0); Total Protein 6.8 g/dL (6.4-8.2)
== END 2020-12-22 05:14 | disposition home or self-care (01) ==
LOC: EDBD 20:15 → ER 20:17
DX: R10.13 Epigastric pain (principal); R19.7 Diarrhea, unspecified; J44.9 Chronic obstructive pulmonary disease, unspecified; F32.9 Major depressive disorder, single episode, unspecified; K21.9 Gastro-esophageal reflux disease without esophagitis; I10 Essential (primary) hypertension; F20.9 Schizophrenia, unspecified; F17.210 Nicotine dependence, cigarettes, uncomplicated; Z90.89 Acquired absence of other organs; Z88.0 Allergy status to penicillin; Z88.8 Allergy status to other drugs, medicaments and biological substances; Z79.899 Other long term (current) drug therapy
CPT/HCPCS: 36415; 74176; 80053; 81001; 85025; 96374; 99284; J2060

== ENCOUNTER 2020-12-30 18:18 | Emergency (ER) | payer OTHER, MEDICAID ==
[~2020-12-30] VITALS: Ht 188 cm; Wt 90.7 kg
[2020-12-30 19:23] LABS: Basophils # (auto) 0.1 10 ^3/uL (0-0.2); Basophils % (auto) 1.4 % (0.0-2.0); Eosinophils # (auto) 0.3 10 ^3/uL (0-0.8); Eosinophils % (auto) 5.9 % (0.0-7.0); Hematocrit 36.7 % (41.0-53.0); Hemoglobin 12.3 g/dL (13.5-17.5); Lymphocytes # (auto) 1.4 10 ^3/uL (0.4-5.4); Lymphocytes % (auto) 24.9 % (10.0-50.0); Mean Corpuscular Hemoglobin 30.9 pg (28.0-32.0); Mean Corpuscular Hgb Conc. 33.6 g/dL (32.0-36.0); Mean Corpuscular Volume 91.9 fL (80.0-100.0); Monocytes # (auto) 0.7 10 ^3/uL (0-1.3); Monocytes % (auto) 12.6 % (0.0-12.0); Neutrophils % (auto) 55.2 % (37.0-80.0); White Blood Cell 5.5 10^3/uL (4.4-10.8)
[2020-12-30 19:39] LABS: Albumin 3.3 g/dL (3.4-5.0); Anion Gap 6 (5-15); Blood Urea Nitrogen 22 mg/dL (7-18); Calcium 8.4 mg/dL (8.5-10.1); Carbon Dioxide 23 mmol/L (21-32); Chloride 117 mmol/L (98-107); Glucose 72 mg/dL (74-106); Lipase 20 U/L (73-393); Potassium 3.9 mmol/L (3.5-5.1); Sodium 146 mmol/L (136-145)
[2020-12-30 19:41] LABS: Alanine Aminotransferase 30 U/L (16-61); Aspartate Aminotransferase 17 U/L (15-37); BUN/Creatinine Ratio 28.6; GFR African American 133 mL/min; GFR Non-African American 110 mL/min
[2020-12-30 19:46] LABS: Alkaline Phosphatase 65 U/L (45-117); Bilirubin, Total 0.2 mg/dL (0.2-1.0); Total Protein 6.3 g/dL (6.4-8.2)
[2020-12-31 00:04] LABS: Alcohol, Urine < 3.0 mg/dL (0-10); Amphetamine Screen, Urine NEGATIVE (NEGATIVE); Barbiturate Scree,Urine NEGATIVE (NEGATIVE); Benzodiazephine Screen, Urine NEGATIVE (NEGATIVE); Cannabinoid Screen, Urine NEGATIVE (NEGATIVE); Cocaine Screen, Urine NEGATIVE (NEGATIVE); Opiate Scree,Urine NEGATIVE (NEGATIVE); Phencyclidine Screen, Urine NEGATIVE (NEGATIVE)
[2020-12-31 00:18] LABS: Urine Bacteria FEW /hpf (None Seen); Urine Blood Negative /uL (Negative); Urine Specific Gravity 1.015 (1.001-1.035); Urine WBC 1 /hpf (0 - 3)
[2020-12-31 03:55] VITALS: BP 128/75
== END 2020-12-31 04:12 | disposition home or self-care (01) ==
LOC: ER 18:18 → EDBD 18:18 → ER 12-31 04:12
DX: K59.00 Constipation, unspecified (principal); R10.13 Epigastric pain; F17.210 Nicotine dependence, cigarettes, uncomplicated; J44.9 Chronic obstructive pulmonary disease, unspecified; K21.9 Gastro-esophageal reflux disease without esophagitis; I10 Essential (primary) hypertension; F20.9 Schizophrenia, unspecified; Z79.899 Other long term (current) drug therapy; Z88.8 Allergy status to other drugs, medicaments and biological substances; Z88.0 Allergy status to penicillin
CPT/HCPCS: 36415; 74176; 80053; 80307; 81001; 82150; 83690; 84484; 85025; 93005

== ENCOUNTER 2021-01-03 13:23 | Emergency (ER) | payer OTHER, MEDICAID ==
[~2021-01-03] VITALS: Ht 170.2 cm; Wt 108.9 kg
[2021-01-03 13:35] VITALS: BP 150/74
== END 2021-01-03 16:43 | disposition home or self-care (01) ==
LOC: EDUNIT# 13:23 → ER 13:23 → EDBD 13:23 → ER 16:43
DX: M25.551 Pain in right hip (principal); F41.9 Anxiety disorder, unspecified; F20.9 Schizophrenia, unspecified; F17.210 Nicotine dependence, cigarettes, uncomplicated; J44.9 Chronic obstructive pulmonary disease, unspecified; K21.9 Gastro-esophageal reflux disease without esophagitis; I10 Essential (primary) hypertension; Z88.0 Allergy status to penicillin; Z88.8 Allergy status to other drugs, medicaments and biological substances

== ENCOUNTER 2021-01-11 22:43 | Emergency (ER) | payer OTHER, MEDICAID ==
[~2021-01-11] VITALS: Ht 195.6 cm; Wt 97.5 kg
[2021-01-12] MEDS ORDERED: LORazepam 0.5 MG TAB PO ONE (02:30)
[2021-01-12 03:18] LABS: BUN/Creatinine Ratio 25.8; Calcium 8.2 mg/dL (8.5-10.1); Potassium 4.2 mmol/L (3.5-5.1)
[2021-01-12 04:25] LABS: Basophils # (auto) 0.2 10 ^3/uL (0-0.2); Basophils % (auto) 2.3 % (0.0-2.0); Eosinophils # (auto) 0.4 10 ^3/uL (0-0.8); Hematocrit 40.1 % (41.0-53.0); Hemoglobin 13.6 g/dL (13.5-17.5); Lymphocytes # (auto) 1.3 10 ^3/uL (0.4-5.4); Lymphocytes % (auto) 19.1 % (10.0-50.0); Mean Corpuscular Hemoglobin 31.6 pg (28.0-32.0); Mean Corpuscular Hgb Conc. 33.8 g/dL (32.0-36.0); Mean Corpuscular Volume 93.3 fL (80.0-100.0); Monocytes % (auto) 14.7 % (0.0-12.0); Neutrophils # (auto) 4.1 10 ^3/uL (1.6-8.6); Neutrophils % (auto) 58.9 % (37.0-80.0); Red Cell Distribution Width 15.5 % (11.8-14.3)
[2021-01-12 14:00] VITALS: BP 140/50
== END 2021-01-12 14:25 | disposition home or self-care (01) ==
LOC: EDBD 22:43 → ER 22:48
DX: R07.89 Other chest pain (principal); R44.1 Visual hallucinations; R44.0 Auditory hallucinations; J44.9 Chronic obstructive pulmonary disease, unspecified; K21.9 Gastro-esophageal reflux disease without esophagitis; I10 Essential (primary) hypertension; F17.210 Nicotine dependence, cigarettes, uncomplicated
CPT/HCPCS: 36415; 71045; 80048; 84484; 85025

== ENCOUNTER 2021-01-20 18:33 | Emergency (ER) | payer OTHER, MEDICAID ==
[~2021-01-20] VITALS: Ht 200.7 cm; Wt 96.6 kg
[2021-01-20 19:56] LABS: Basophils # (auto) 0.1 10 ^3/uL (0-0.2); Basophils % (auto) 0.7 % (0.0-2.0); Eosinophils # (auto) 0.4 10 ^3/uL (0-0.8); Eosinophils % (auto) 4.2 % (0.0-7.0); Hematocrit 37.8 % (41.0-53.0); Hemoglobin 12.5 g/dL (13.5-17.5); Lymphocytes # (auto) 1.2 10 ^3/uL (0.4-5.4); Lymphocytes % (auto) 13.6 % (10.0-50.0); Mean Corpuscular Hemoglobin 31.1 pg (28.0-32.0); Mean Corpuscular Hgb Conc. 33.2 g/dL (32.0-36.0); Mean Corpuscular Volume 93.5 fL (80.0-100.0); Monocytes % (auto) 10.7 % (0.0-12.0); Neutrophils # (auto) 6.3 10 ^3/uL (1.6-8.6); Neutrophils % (auto) 70.8 % (37.0-80.0); Red Blood Cells 4.04 10^6/uL (4.5-5.90); Red Cell Distribution Width 15.5 % (11.8-14.3); White Blood Cell 8.9 10^3/uL (4.4-10.8)
[2021-01-20 20:17] LABS: Albumin 2.8 g/dL (3.4-5.0); Anion Gap 5 (5-15); Blood Alcohol < 3.0 mg/dL (0-5); Blood Urea Nitrogen 26 mg/dL (7-18); Calcium 8.2 mg/dL (8.5-10.1); Carbon Dioxide 21 mmol/L (21-32); Chloride 118 mmol/L (98-107); Glucose 80 mg/dL (74-106); Magnesium 1.7 mg/dL (1.6-2.6); Potassium 3.7 mmol/L (3.5-5.1); Sodium 144 mmol/L (136-145)
[2021-01-20 20:18] LABS: Acetaminophen < 2.0 ug/mL (10-30); Salicylate 2.2 mg/dL (2.8-20.0)
[2021-01-20 20:20] LABS: Alanine Aminotransferase 37 U/L (16-61); Alkaline Phosphatase 73 U/L (45-117); Aspartate Aminotransferase 20 U/L (15-37); BUN/Creatinine Ratio 31.3; Bilirubin, Total 0.3 mg/dL (0.2-1.0); GFR African American 122 mL/min; GFR Non-African American 100 mL/min; Total Protein 6.6 g/dL (6.4-8.2)
[2021-01-21] MEDS ORDERED: ACETAMINOPHEN 500 MG TAB PO ONE ×2 (06:00→11:15)
[2021-01-21 07:49] LABS: Alcohol, Urine < 3.0 mg/dL (0-10); Amphetamine Screen, Urine NEGATIVE (NEGATIVE); Barbiturate Scree,Urine NEGATIVE (NEGATIVE); Benzodiazephine Screen, Urine NEGATIVE (NEGATIVE); Cannabinoid Screen, Urine NEGATIVE (NEGATIVE); Cocaine Screen, Urine NEGATIVE (NEGATIVE); Opiate Scree,Urine NEGATIVE (NEGATIVE); Phencyclidine Screen, Urine NEGATIVE (NEGATIVE)
[2021-01-21 12:50] VITALS: BP 125/81
== END 2021-01-21 16:37 | disposition still patient (30) ==
LOC: EDBD 18:33 → ER 18:35
DX: S09.90XA Unspecified injury of head, initial encounter (principal); F20.9 Schizophrenia, unspecified; R45.851 Suicidal ideations; R44.1 Visual hallucinations; F17.210 Nicotine dependence, cigarettes, uncomplicated; J44.9 Chronic obstructive pulmonary disease, unspecified; F32.9 Major depressive disorder, single episode, unspecified; K21.9 Gastro-esophageal reflux disease without esophagitis; I10 Essential (primary) hypertension; X79.XXXA Intentional self-harm by blunt object, initial encounter; Y93.89 Activity, other specified; Y92.89 Other specified places as the place of occurrence of the external cause; Y99.8 Other external cause status
CPT/HCPCS: 36415; 70450; 80053; 80307; 80320; 80329; 83735; 85025

== ENCOUNTER 2021-02-05 15:36 | Emergency (ER) | payer OTHER, MEDICAID ==
[~2021-02-05] VITALS: Ht 200.7 cm; Wt 99.8 kg
[2021-02-05 16:15] LABS: Basophils # (auto) 0 10 ^3/uL (0-0.2); Basophils % (auto) 0.6 % (0.0-2.0); Eosinophils # (auto) 0.2 10 ^3/uL (0-0.8); Eosinophils % (auto) 3.9 % (0.0-7.0); Hematocrit 36.9 % (41.0-53.0); Lymphocytes # (auto) 1.3 10 ^3/uL (0.4-5.4); Lymphocytes % (auto) 21.8 % (10.0-50.0); Mean Corpuscular Hemoglobin 30.4 pg (28.0-32.0); Mean Corpuscular Hgb Conc. 32.6 g/dL (32.0-36.0); Mean Corpuscular Volume 93.4 fL (80.0-100.0); Monocytes # (auto) 0.8 10 ^3/uL (0-1.3); Monocytes % (auto) 13.3 % (0.0-12.0); Neutrophils # (auto) 3.6 10 ^3/uL (1.6-8.6); Neutrophils % (auto) 60.4 % (37.0-80.0); Red Blood Cells 3.95 10^6/uL (4.5-5.90); Red Cell Distribution Width 15.8 % (11.8-14.3); White Blood Cell 5.9 10^3/uL (4.4-10.8)
[2021-02-05 16:27] LABS: Acetaminophen < 2.0 ug/mL (10-30); Albumin 2.7 g/dL (3.4-5.0); Anion Gap 7 (5-15); Blood Alcohol < 3.0 mg/dL (0-5); Blood Urea Nitrogen 22 mg/dL (7-18); Calcium 8.4 mg/dL (8.5-10.1); Carbon Dioxide 25 mmol/L (21-32); Chloride 113 mmol/L (98-107); Glucose 69 mg/dL (74-106); Magnesium 1.9 mg/dL (1.6-2.6); Potassium 4.1 mmol/L (3.5-5.1); Salicylate 1.9 mg/dL (2.8-20.0); Sodium 145 mmol/L (136-145)
[2021-02-05 16:30] LABS: Alanine Aminotransferase 29 U/L (16-61); Alkaline Phosphatase 72 U/L (45-117); Aspartate Aminotransferase 11 U/L (15-37); BUN/Creatinine Ratio 31.4; Bilirubin, Total 0.3 mg/dL (0.2-1.0); GFR African American 147 mL/min; GFR Non-African American 122 mL/min; Total Protein 6.3 g/dL (6.4-8.2)
[2021-02-05] MEDS ORDERED: BACITRACIN TOP OINT 1 UD PKG TOP ONE (20:15)
[2021-02-05 21:16] VITALS: BP 143/88
[2021-02-05] MEDS ORDERED: SODIUM CHLOR 0.9% PF (SALINE LOCK) 10ML VIAL/SYR IV SCH (22:00)
== END 2021-02-05 21:34 | disposition home or self-care (01) ==
LOC: EDBD 15:36 → ER 15:36
DX: T14.91XA Suicide attempt, initial encounter (principal); F20.9 Schizophrenia, unspecified; J44.9 Chronic obstructive pulmonary disease, unspecified; F32.9 Major depressive disorder, single episode, unspecified; K21.9 Gastro-esophageal reflux disease without esophagitis; I10 Essential (primary) hypertension; F17.210 Nicotine dependence, cigarettes, uncomplicated; Z88.8 Allergy status to other drugs, medicaments and biological substances; Z88.6 Allergy status to analgesic agent; Z88.0 Allergy status to penicillin; Z79.899 Other long term (current) drug therapy; Z90.89 Acquired absence of other organs; X83.8XXA Intentional self-harm by other specified means, initial encounter; Y93.9 Activity, unspecified; Y92.89 Other specified places as the place of occurrence of the external cause; Y99.8 Other external cause status
CPT/HCPCS: 36415; 80053; 80320; 80329; 83735; 85025

== ENCOUNTER 2021-02-27 14:51 | Emergency (ER) | payer OTHER, MEDICAID ==
[~2021-02-27] VITALS: Ht 170.2 cm; Wt 99.8 kg
[2021-02-27 15:58] LABS: Basophils # (auto) 0.1 10 ^3/uL (0-0.2); Basophils % (auto) 0.9 % (0.0-2.0); Eosinophils # (auto) 0.2 10 ^3/uL (0-0.8); Eosinophils % (auto) 1.9 % (0.0-7.0); Hematocrit 39.7 % (41.0-53.0); Hemoglobin 12.8 g/dL (13.5-17.5); Lymphocytes # (auto) 1.4 10 ^3/uL (0.4-5.4); Lymphocytes % (auto) 14.6 % (10.0-50.0); Mean Corpuscular Hemoglobin 30.7 pg (28.0-32.0); Mean Corpuscular Hgb Conc. 32.3 g/dL (32.0-36.0); Mean Corpuscular Volume 94.9 fL (80.0-100.0); Monocytes # (auto) 1.1 10 ^3/uL (0-1.3); Monocytes % (auto) 11.6 % (0.0-12.0); Neutrophils # (auto) 6.9 10 ^3/uL (1.6-8.6); Red Blood Cells 4.18 10^6/uL (4.5-5.90); Red Cell Distribution Width 15.7 % (11.8-14.3); White Blood Cell 9.7 10^3/uL (4.4-10.8)
[2021-02-27 16:13] LABS: Potassium 3.9 mmol/L (3.5-5.1)
[2021-02-27 16:16] LABS: BUN/Creatinine Ratio 38.4; Bilirubin, Total 0.4 mg/dL (0.2-1.0); Total Protein 6.3 g/dL (6.4-8.2)
[2021-02-27] MEDS ORDERED: DOCUSATE SOD 100 MG CAP PO ONE (17:15)
[2021-02-27 17:20] LABS: Urine Bacteria NONE SEEN /hpf (None Seen); Urine Blood Negative /uL (Negative); Urine Specific Gravity 1.011 (1.001-1.035); Urine WBC <1 /hpf (0 - 3)
[2021-02-27 18:25] VITALS: BP 107/78
== END 2021-02-27 18:52 | disposition admitted as inpatient to this hospital (09) ==
LOC: EDBD 14:51 → ER 14:54
DX: K59.00 Constipation, unspecified (principal); J44.9 Chronic obstructive pulmonary disease, unspecified; K21.9 Gastro-esophageal reflux disease without esophagitis; I10 Essential (primary) hypertension; F17.210 Nicotine dependence, cigarettes, uncomplicated; Z90.89 Acquired absence of other organs; Z79.899 Other long term (current) drug therapy; Z88.0 Allergy status to penicillin; Z88.8 Allergy status to other drugs, medicaments and biological substances
CPT/HCPCS: 36415; 74176; 80053; 81001; 85025; 93005

== ENCOUNTER 2021-02-27 22:07 | Emergency (ER) | payer OTHER, MEDICAID ==
[~2021-02-27] VITALS: Ht 195.6 cm; Wt 129.3 kg
[2021-02-28 06:00] VITALS: BP 110/66
== END 2021-02-28 06:11 | disposition home or self-care (01) ==
LOC: EDBD 22:07 → ER 22:08
DX: K59.00 Constipation, unspecified (principal); F17.210 Nicotine dependence, cigarettes, uncomplicated; Z91.14 Patient's other noncompliance with medication regimen; Z88.0 Allergy status to penicillin

== ENCOUNTER 2021-03-15 00:39 | Emergency (ER) | payer OTHER, MEDICAID ==
[~2021-03-15] VITALS: Ht 188 cm; Wt 77.1 kg
[2021-03-15 02:37] LABS: Basophils # (auto) 0 10 ^3/uL (0-0.2); Basophils % (auto) 1.1 % (0.0-2.0); Eosinophils # (auto) 0.3 10 ^3/uL (0-0.8); Eosinophils % (auto) 8.3 % (0.0-7.0); Hematocrit 37.7 % (41.0-53.0); Hemoglobin 12.5 g/dL (13.5-17.5); Lymphocytes # (auto) 1.4 10 ^3/uL (0.4-5.4); Lymphocytes % (auto) 36.1 % (10.0-50.0); Mean Corpuscular Hemoglobin 31.5 pg (28.0-32.0); Mean Corpuscular Hgb Conc. 33.2 g/dL (32.0-36.0); Mean Corpuscular Volume 94.9 fL (80.0-100.0); Monocytes # (auto) 0.7 10 ^3/uL (0-1.3); Monocytes % (auto) 16.9 % (0.0-12.0); Neutrophils # (auto) 1.5 10 ^3/uL (1.6-8.6); Neutrophils % (auto) 37.6 % (37.0-80.0); Nucleated Red Blood Cells % 0.1 %; Red Blood Cells 3.98 10^6/uL (4.5-5.90); Red Cell Distribution Width 15.6 % (11.8-14.3); White Blood Cell 3.9 10^3/uL (4.4-10.8)
[2021-03-15 02:52] LABS: Albumin 3.1 g/dL (3.4-5.0); BUN/Creatinine Ratio 20.7; Calcium 8.3 mg/dL (8.5-10.1); Potassium 3.7 mmol/L (3.5-5.1)
[2021-03-15 02:56] LABS: Bilirubin, Total 0.3 mg/dL (0.2-1.0); Total Protein 6.5 g/dL (6.4-8.2)
[2021-03-15 06:25] LABS: Amphetamine Screen, Urine NEGATIVE (NEGATIVE); Barbiturate Scree,Urine NEGATIVE (NEGATIVE); Benzodiazephine Screen, Urine NEGATIVE (NEGATIVE); Cannabinoid Screen, Urine NEGATIVE (NEGATIVE); Cocaine Screen, Urine NEGATIVE (NEGATIVE); Opiate Scree,Urine NEGATIVE (NEGATIVE); Phencyclidine Screen, Urine NEGATIVE (NEGATIVE)
[2021-03-15 06:56] LABS: Alcohol, Urine < 3.0 mg/dL (0-10)
[2021-03-15 11:00] VITALS: BP 140/82
== END 2021-03-15 12:00 | disposition home or self-care (01) ==
LOC: EDBD 00:39 → ER 00:40
DX: R44.3 Hallucinations, unspecified (principal); R45.851 Suicidal ideations; M25.551 Pain in right hip; F41.9 Anxiety disorder, unspecified; J44.9 Chronic obstructive pulmonary disease, unspecified; F32.9 Major depressive disorder, single episode, unspecified; K21.9 Gastro-esophageal reflux disease without esophagitis; I10 Essential (primary) hypertension; F17.210 Nicotine dependence, cigarettes, uncomplicated; Z20.822 Contact with and (suspected) exposure to COVID-19
CPT/HCPCS: 36415; 73501; 80053; 80307; 80320; 85025; 87426

== ENCOUNTER 2021-03-25 20:13 | Emergency (ER) | payer OTHER, MEDICAID ==
[~2021-03-25] VITALS: Ht 190.5 cm; Wt 104.3 kg
[2021-03-25 21:03] LABS: Basophils # (auto) 0 10 ^3/uL (0-0.2); Basophils % (auto) 0.6 % (0.0-2.0); Eosinophils # (auto) 0.1 10 ^3/uL (0-0.8); Eosinophils % (auto) 1.7 % (0.0-7.0); Hematocrit 38.2 % (41.0-53.0); Hemoglobin 12.7 g/dL (13.5-17.5); Lymphocytes # (auto) 1.2 10 ^3/uL (0.4-5.4); Lymphocytes % (auto) 18.3 % (10.0-50.0); Mean Corpuscular Hemoglobin 31.1 pg (28.0-32.0); Mean Corpuscular Hgb Conc. 33.1 g/dL (32.0-36.0); Mean Corpuscular Volume 93.9 fL (80.0-100.0); Monocytes # (auto) 0.9 10 ^3/uL (0-1.3); Monocytes % (auto) 14.3 % (0.0-12.0); Neutrophils # (auto) 4.1 10 ^3/uL (1.6-8.6); Neutrophils % (auto) 65.1 % (37.0-80.0); Nucleated Red Blood Cells % 0.1 %; Red Blood Cells 4.07 10^6/uL (4.5-5.90); Red Cell Distribution Width 14.8 % (11.8-14.3); White Blood Cell 6.3 10^3/uL (4.4-10.8)
[2021-03-25 21:19] LABS: Albumin 3.1 g/dL (3.4-5.0); Anion Gap 4 (5-15); Blood Urea Nitrogen 19 mg/dL (7-18); Calcium 8.6 mg/dL (8.5-10.1); Carbon Dioxide 26 mmol/L (21-32); Chloride 112 mmol/L (98-107); Glucose 101 mg/dL (74-106); INR 1.23 (0.9-1.15); Partial Thromboplastin Time 26.6 sec (23.6-33.0); Potassium 3.6 mmol/L (3.5-5.1); Sodium 142 mmol/L (136-145)
[2021-03-25 21:27] LABS: Alanine Aminotransferase 27 U/L (16-61); Alkaline Phosphatase 72 U/L (45-117); Aspartate Aminotransferase 10 U/L (15-37); Bilirubin, Total 0.2 mg/dL (0.2-1.0); GFR African American 134 mL/min; GFR Non-African American 111 mL/min; Total Protein 6.3 g/dL (6.4-8.2)
[2021-03-26 06:14] VITALS: BP 166/86
== END 2021-03-26 06:19 | disposition home or self-care (01) ==
LOC: EDBD 20:13 → ER 20:13
DX: R06.02 Shortness of breath (principal); F20.9 Schizophrenia, unspecified; F31.9 Bipolar disorder, unspecified; K21.9 Gastro-esophageal reflux disease without esophagitis; I10 Essential (primary) hypertension; J44.9 Chronic obstructive pulmonary disease, unspecified; F17.210 Nicotine dependence, cigarettes, uncomplicated
CPT/HCPCS: 36415; 71045; 80053; 84484; 85025; 85610; 85730; 93005

== ENCOUNTER 2021-04-15 18:24 | Emergency (ER) | payer OTHER, MEDICAID ==
[~2021-04-15] VITALS: Ht 188 cm; Wt 81.6 kg
[2021-04-15 21:57] LABS: Basophils # (auto) 0.1 10 ^3/uL (0-0.2); Basophils % (auto) 0.9 % (0.0-2.0); Eosinophils # (auto) 0.3 10 ^3/uL (0-0.8); Eosinophils % (auto) 3.9 % (0.0-7.0); Hematocrit 41.7 % (41.0-53.0); Hemoglobin 14.2 g/dL (13.5-17.5); Lymphocytes # (auto) 1.5 10 ^3/uL (0.4-5.4); Lymphocytes % (auto) 21.6 % (10.0-50.0); Mean Corpuscular Hemoglobin 31.2 pg (28.0-32.0); Mean Corpuscular Hgb Conc. 33.9 g/dL (32.0-36.0); Mean Corpuscular Volume 91.9 fL (80.0-100.0); Monocytes # (auto) 0.9 10 ^3/uL (0-1.3); Monocytes % (auto) 12.3 % (0.0-12.0); Neutrophils # (auto) 4.3 10 ^3/uL (1.6-8.6); Neutrophils % (auto) 61.3 % (37.0-80.0); Red Blood Cells 4.54 10^6/uL (4.5-5.90); Red Cell Distribution Width 14.2 % (11.8-14.3)
[2021-04-15 22:14] LABS: Albumin 3.4 g/dL (3.4-5.0); Anion Gap 3 (5-15); Blood Alcohol < 3.0 mg/dL (0-5); Blood Urea Nitrogen 21 mg/dL (7-18); Calcium 9.1 mg/dL (8.5-10.1); Carbon Dioxide 29 mmol/L (21-32); Chloride 106 mmol/L (98-107); Glucose 96 mg/dL (74-106); Potassium 4.1 mmol/L (3.5-5.1); Sodium 138 mmol/L (136-145)
[2021-04-15 22:17] LABS: Acetaminophen < 2.0 ug/mL (10-30); Alanine Aminotransferase 24 U/L (16-61); Alkaline Phosphatase 80 U/L (45-117); Aspartate Aminotransferase 10 U/L (15-37); BUN/Creatinine Ratio 22.8; Bilirubin, Total 0.3 mg/dL (0.2-1.0); GFR African American 108 mL/min; GFR Non-African American 89 mL/min; Salicylate 2.8 mg/dL (2.8-20.0); Total Protein 7.3 g/dL (6.4-8.2)
[2021-04-15 23:27] LABS: Alcohol, Urine < 3.0 mg/dL (0-10); Barbiturate Scree,Urine NEGATIVE (NEGATIVE); Benzodiazephine Screen, Urine NEGATIVE (NEGATIVE); Cannabinoid Screen, Urine NEGATIVE (NEGATIVE); Cocaine Screen, Urine NEGATIVE (NEGATIVE); Opiate Scree,Urine NEGATIVE (NEGATIVE); Phencyclidine Screen, Urine NEGATIVE (NEGATIVE)
[2021-04-15 23:56] LABS: Amphetamine Screen, Urine NEGATIVE (NEGATIVE)
[2021-04-16 00:46] LABS: Urine Bacteria NONE SEEN /hpf (None Seen); Urine Blood Negative /uL (Negative); Urine Specific Gravity 1.014 (1.001-1.035); Urine WBC 1 /hpf (0 - 3)
[2021-04-16 02:39] VITALS: BP 142/74
== END 2021-04-16 02:45 | disposition home or self-care (01) ==
LOC: EDBD 18:24 → ER 18:24
DX: Z59.00 Homelessness unspecified (principal); F20.9 Schizophrenia, unspecified; J44.9 Chronic obstructive pulmonary disease, unspecified; F32.9 Major depressive disorder, single episode, unspecified; K21.9 Gastro-esophageal reflux disease without esophagitis; I10 Essential (primary) hypertension; Z88.6 Allergy status to analgesic agent; Z88.0 Allergy status to penicillin; Z88.8 Allergy status to other drugs, medicaments and biological substances; Z79.899 Other long term (current) drug therapy; F17.210 Nicotine dependence, cigarettes, uncomplicated
CPT/HCPCS: 36415; 80053; 80307; 80320; 80329; 81001; 85025

== ENCOUNTER 2021-04-29 19:08 | Inpatient (IN) | payer OTHER, MEDICAID ==
[~2021-04-29] VITALS: Ht 185.4 cm; Wt 104.7 kg
[2021-04-29 22:31] LABS: Basophils # (auto) 0.1 10 ^3/uL (0-0.2); Basophils % (auto) 0.9 % (0.0-2.0); Eosinophils # (auto) 0.3 10 ^3/uL (0-0.8); Eosinophils % (auto) 4.7 % (0.0-7.0); Hematocrit 40.1 % (41.0-53.0); Hemoglobin 13.1 g/dL (13.5-17.5); Lymphocytes # (auto) 1.1 10 ^3/uL (0.4-5.4); Lymphocytes % (auto) 17.4 % (10.0-50.0); Mean Corpuscular Hemoglobin 30.2 pg (28.0-32.0); Mean Corpuscular Hgb Conc. 32.6 g/dL (32.0-36.0); Mean Corpuscular Volume 92.6 fL (80.0-100.0); Monocytes # (auto) 0.8 10 ^3/uL (0-1.3); Monocytes % (auto) 12.2 % (0.0-12.0); Neutrophils # (auto) 4.2 10 ^3/uL (1.6-8.6); Neutrophils % (auto) 64.8 % (37.0-80.0); Nucleated Red Blood Cells % 0.1 %; Red Blood Cells 4.34 10^6/uL (4.5-5.90); Red Cell Distribution Width 14.4 % (11.8-14.3); White Blood Cell 6.6 10^3/uL (4.4-10.8)
[2021-04-29 22:48] LABS: Potassium 3.8 mmol/L (3.5-5.1)
[2021-04-29 22:54] LABS: Albumin 3.2 g/dL (3.4-5.0); BUN/Creatinine Ratio 29.7; Bilirubin, Total 0.2 mg/dL (0.2-1.0); Calcium 8.8 mg/dL (8.5-10.1); Total Protein 6.8 g/dL (6.4-8.2)
[2021-04-29] MEDS ORDERED: ONDANSETRON ODT 4 MG TAB PO ONE (23:30)
[2021-04-29] MEDS ORDERED: HYDROcodone-ACET 10/325MG TAB PO ONE (23:30)
[2021-04-30] MEDS ORDERED: PIPERACILLIN-TAZOB 3.375GM 100 ML IV ONE (01:30)
[2021-04-30] MEDS ORDERED: VANCOMYCIN 1GM/250ML 250 ML IV ONE (01:30)
[2021-04-30] MEDS ORDERED: DOCUSATE SOD 100 MG CAP PO PRN (04:45)
[2021-04-30] MEDS ORDERED: VANCOMYCIN PER PHARMACY 0 MG IV SCH (04:45)
[2021-04-30] MEDS ORDERED: ACETAMINOPHEN 325 MG TAB PO PRN (04:45)
[2021-04-30] MEDS ORDERED: ONDANSETRON HCL 4 MG/2 ML VIAL IV PRN (04:45)
[2021-04-30] MEDS ORDERED: MORPHINE SULFATE INJECTION 2 MG/ML SYRG IV PRN (05:45)
[2021-04-30] MEDS ORDERED: NITROGLYCERIN 0.4 MG SL TAB SL PRN (05:45)
[2021-04-30] MEDS: SODIUM CHLOR 0.9% PF (SALINE LOCK) 10ML VIAL/SYR IV SCH ×3 (06:51→21:19)
[2021-04-30 06:58] LABS: Basophils # (auto) 0 10 ^3/uL (0-0.2); Basophils % (auto) 0.5 % (0.0-2.0); Eosinophils # (auto) 0.4 10 ^3/uL (0-0.8); Eosinophils % (auto) 5.6 % (0.0-7.0); Hematocrit 39.7 % (41.0-53.0); Hemoglobin 13.1 g/dL (13.5-17.5); Lymphocytes # (auto) 1.2 10 ^3/uL (0.4-5.4); Lymphocytes % (auto) 16.4 % (10.0-50.0); Mean Corpuscular Hemoglobin 30.9 pg (28.0-32.0); Mean Corpuscular Hgb Conc. 32.9 g/dL (32.0-36.0); Monocytes # (auto) 0.9 10 ^3/uL (0-1.3); Monocytes % (auto) 12.9 % (0.0-12.0); Neutrophils # (auto) 4.5 10 ^3/uL (1.6-8.6); Neutrophils % (auto) 64.6 % (37.0-80.0); Nucleated Red Blood Cells % 0.2 %; Red Blood Cells 4.23 10^6/uL (4.5-5.90); Red Cell Distribution Width 14.2 % (11.8-14.3)
[2021-04-30] MEDS: HYDROcodone-ACET 5/325MG TAB PO PRN (07:02)
[2021-04-30 07:22] LABS: Potassium 4.2 mmol/L (3.5-5.1)
[2021-04-30 07:35] LABS: BUN/Creatinine Ratio 28.6; Bilirubin, Total 0.4 mg/dL (0.2-1.0); Calcium 8.4 mg/dL (8.5-10.1); Total Protein 6.3 g/dL (6.4-8.2)
[2021-04-30] MEDS ORDERED: ASCORBIC ACID 500 MG TAB PO SCH (10:00)
[2021-04-30] MEDS ORDERED: ZINC SULFATE 220mg CAP or TAB PO SCH (10:00)
[2021-04-30] MEDS: ENOXAPARIN SOD 40 MG/0.4 ML SYRINGE SC SCH (10:33)
[2021-04-30] MEDS: FAMOTIDINE (10MG/ML) 2ML VL IV SCH (10:33)
[2021-04-30] MEDS: VANCOMYCIN 1GM/250ML 250 ML IV SCH ×2 (10:44→20:28)
[2021-04-30] MEDS ORDERED: IBUP800T26 PO (10:58)
[2021-04-30] MEDS ORDERED: OLAN20TA30 PO (10:58)
[2021-04-30] MEDS ORDERED: BUSP10TA31 PO (10:58)
[2021-04-30] MEDS ORDERED: RISP1TAB63 PO (10:58)
[2021-04-30] MEDS ORDERED: LUMA42CA PO (10:58)
[2021-04-30] MEDS ORDERED: LOSA-69 PO (10:58)
[2021-04-30] MEDS ORDERED: MIRT1TAB39 PO (10:58)
[2021-04-30] MEDS ORDERED: BENZ1TAB2 PO (10:58)
[2021-04-30] MEDS ORDERED: PALI234I IM (10:58)
[2021-04-30] MEDS ORDERED: QUET1TAB88 PO (10:58)
[2021-04-30] MEDS ORDERED: AZITHROMYCIN 500MG/ 250ML 250 ML IV SCH (12:00)
[2021-04-30 13:00] VITALS: BP 139/76
[2021-04-30] MEDS ORDERED: CEFEPIME 1 GM in SODIUM CHL 0.9% 50 ML IV ONE (14:30)
[2021-04-30] MEDS ORDERED: OLANZapine 5 MG TAB PO ONE (16:45)
[2021-04-30 16:54] VITALS: BP 140/74
[2021-04-30] MEDS: busPIRone HCL 10 MG TAB PO SCH (21:20)
[2021-04-30] MEDS: risperiDONE 1 MG TAB PO SCH (21:20)
[2021-04-30] MEDS: CEFEPIME 1 GM in SODIUM CHL 0.9% 50 ML IV SCH (21:52)
[2021-04-30 21:57] VITALS: BP 121/70
[2021-04-30] MEDS ORDERED: MIRTAZAPINE 30 MG TAB PO SCH (22:00)
[2021-04-30] MEDS ORDERED: QUEtiapine FUMARATE 100 MG TAB PO SCH (22:00)
[2021-05-01 05:28] VITALS: BP 138/79
[2021-05-01 05:28] LABS: Basophils # (auto) 0.1 10 ^3/uL (0-0.2); Eosinophils # (auto) 0.3 10 ^3/uL (0-0.8); Eosinophils % (auto) 5.3 % (0.0-7.0); Hematocrit 38.2 % (41.0-53.0); Hemoglobin 12.8 g/dL (13.5-17.5); Lymphocytes % (auto) 17.9 % (10.0-50.0); Mean Corpuscular Hemoglobin 30.9 pg (28.0-32.0); Mean Corpuscular Hgb Conc. 33.4 g/dL (32.0-36.0); Mean Corpuscular Volume 92.4 fL (80.0-100.0); Monocytes # (auto) 0.8 10 ^3/uL (0-1.3); Monocytes % (auto) 14.7 % (0.0-12.0); Neutrophils # (auto) 3.2 10 ^3/uL (1.6-8.6); Neutrophils % (auto) 61.1 % (37.0-80.0); Red Blood Cells 4.13 10^6/uL (4.5-5.90); White Blood Cell 5.3 10^3/uL (4.4-10.8)
[2021-05-01 05:50] LABS: Potassium 4.1 mmol/L (3.5-5.1)
[2021-05-01 05:58] LABS: Albumin 2.6 g/dL (3.4-5.0); BUN/Creatinine Ratio 22.6; Bilirubin, Total 0.2 mg/dL (0.2-1.0); Calcium 8.4 mg/dL (8.5-10.1); Total Protein 5.6 g/dL (6.4-8.2)
[2021-05-01] MEDS: SODIUM CHLOR 0.9% PF (SALINE LOCK) 10ML VIAL/SYR IV SCH ×3 (06:22→21:02)
[2021-05-01] MEDS: VANCOMYCIN 1GM/250ML 250 ML IV SCH ×3 (06:22→22:37)
[2021-05-01] MEDS: busPIRone HCL 10 MG TAB PO SCH ×3 (06:23→21:02)
[2021-05-01] MEDS: CEFEPIME 1 GM in SODIUM CHL 0.9% 50 ML IV SCH ×3 (07:36→21:04)
[2021-05-01 09:00] VITALS: BP 147/86
[2021-05-01] MEDS: OLANZapine 5 MG TAB PO SCH (11:45)
[2021-05-01] MEDS: risperiDONE 1 MG TAB PO SCH ×2 (11:45→21:02)
[2021-05-01] MEDS: FAMOTIDINE (10MG/ML) 2ML VL IV SCH (11:45)
[2021-05-01] MEDS: ENOXAPARIN SOD 40 MG/0.4 ML SYRINGE SC SCH (11:46)
[2021-05-01] MEDS ORDERED: predniSONE 20 MG TAB PO ONE (12:30)
[2021-05-01 13:00] VITALS: BP 154/80
[2021-05-01 17:00] VITALS: BP 142/73
[2021-05-01 22:00] VITALS: BP 127/61
[2021-05-02] MEDS: HYDROcodone-ACET 5/325MG TAB PO PRN ×2 (02:18→22:53)
[2021-05-02] MEDS: busPIRone HCL 10 MG TAB PO SCH ×3 (04:28→22:37)
[2021-05-02] MEDS: OLANZapine 5 MG TAB PO SCH (04:59)
[2021-05-02 05:00] VITALS: BP 124/82
[2021-05-02] MEDS ORDERED: ALUM & MAG HYDROX-SIMETH LIQ(MAALOX) 30 ML PO PRN (05:00)
[2021-05-02] MEDS: CEFEPIME 1 GM in SODIUM CHL 0.9% 50 ML IV SCH (05:02)
[2021-05-02] MEDS: SODIUM CHLOR 0.9% PF (SALINE LOCK) 10ML VIAL/SYR IV SCH ×3 (05:02→22:37)
[2021-05-02] MEDS: VANCOMYCIN 1GM/250ML 250 ML IV SCH (06:34)
[2021-05-02 06:39] LABS: Basophils # (auto) 0 10 ^3/uL (0-0.2); Basophils % (auto) 0.4 % (0.0-2.0); Eosinophils # (auto) 0 10 ^3/uL (0-0.8); Eosinophils % (auto) 0.4 % (0.0-7.0); Hematocrit 38.4 % (41.0-53.0); Hemoglobin 12.8 g/dL (13.5-17.5); Lymphocytes # (auto) 1.2 10 ^3/uL (0.4-5.4); Mean Corpuscular Hemoglobin 30.8 pg (28.0-32.0); Mean Corpuscular Hgb Conc. 33.2 g/dL (32.0-36.0); Mean Corpuscular Volume 92.6 fL (80.0-100.0); Monocytes # (auto) 0.9 10 ^3/uL (0-1.3); Neutrophils # (auto) 4.9 10 ^3/uL (1.6-8.6); Neutrophils % (auto) 69.2 % (37.0-80.0); Red Blood Cells 4.15 10^6/uL (4.5-5.90); Red Cell Distribution Width 13.5 % (11.8-14.3); White Blood Cell 7.1 10^3/uL (4.4-10.8)
[2021-05-02 07:05] LABS: Potassium 3.8 mmol/L (3.5-5.1)
[2021-05-02 07:16] LABS: BUN/Creatinine Ratio 25.8; Calcium 8.5 mg/dL (8.5-10.1)
[2021-05-02 09:00] VITALS: BP 155/78
[2021-05-02] MEDS: FAMOTIDINE (10MG/ML) 2ML VL IV SCH (10:03)
[2021-05-02] MEDS: predniSONE 20 MG TAB PO SCH (10:04)
[2021-05-02] MEDS: risperiDONE 1 MG TAB PO SCH ×2 (10:05→22:37)
[2021-05-02] MEDS: ENOXAPARIN SOD 40 MG/0.4 ML SYRINGE SC SCH (10:05)
[2021-05-02 12:30] VITALS: BP 156/78
[2021-05-02 14:27] LABS: Urine Bacteria NONE SEEN /hpf (None Seen); Urine Blood Negative /uL (Negative); Urine Specific Gravity 1.009 (1.001-1.035); Urine WBC <1 /hpf (0 - 3)
[2021-05-02] MEDS: LORazepam 2MG/ML-1ML VIAL IV PRN (16:06)
[2021-05-02 16:26] LABS: Basophils # (auto) 0 10 ^3/uL (0-0.2); Basophils % (auto) 0.2 % (0.0-2.0); Eosinophils # (auto) 0 10 ^3/uL (0-0.8); Eosinophils % (auto) 0.1 % (0.0-7.0); Hematocrit 38.9 % (41.0-53.0); Hemoglobin 12.9 g/dL (13.5-17.5); Lymphocytes # (auto) 0.6 10 ^3/uL (0.4-5.4); Lymphocytes % (auto) 7.2 % (10.0-50.0); Mean Corpuscular Hemoglobin 30.4 pg (28.0-32.0); Mean Corpuscular Hgb Conc. 33.1 g/dL (32.0-36.0); Mean Corpuscular Volume 91.9 fL (80.0-100.0); Monocytes # (auto) 0.3 10 ^3/uL (0-1.3); Monocytes % (auto) 3.4 % (0.0-12.0); Neutrophils # (auto) 7.1 10 ^3/uL (1.6-8.6); Neutrophils % (auto) 89.1 % (37.0-80.0); Nucleated Red Blood Cells % 0.1 %; Red Blood Cells 4.23 10^6/uL (4.5-5.90)
[2021-05-02 16:37] LABS: Albumin 3.1 g/dL (3.4-5.0); Calcium 8.6 mg/dL (8.5-10.1); Potassium 4.1 mmol/L (3.5-5.1)
[2021-05-02 16:46] LABS: INR 1.1 (0.9-1.15)
[2021-05-02 16:47] LABS: BUN/Creatinine Ratio 21.4; Bilirubin, Total 0.2 mg/dL (0.2-1.0); Total Protein 6.6 g/dL (6.4-8.2)
[2021-05-02 17:00] VITALS: BP 145/84
[2021-05-02 21:43] VITALS: BP 137/60
[2021-05-03 05:00] VITALS: BP 130/70
[2021-05-03] MEDS: busPIRone HCL 10 MG TAB PO SCH ×3 (06:00→20:57)
[2021-05-03] MEDS: SODIUM CHLOR 0.9% PF (SALINE LOCK) 10ML VIAL/SYR IV SCH ×3 (06:00→20:57)
[2021-05-03 06:33] LABS: INR 1.13 (0.9-1.15); Partial Thromboplastin Time 25.4 sec (23.6-33.0)
[2021-05-03 08:30] VITALS: BP 134/72
[2021-05-03 09:00] VITALS: BP 134/72
[2021-05-03] MEDS: OLANZapine 5 MG TAB PO SCH (10:47)
[2021-05-03] MEDS: predniSONE 20 MG TAB PO SCH (10:47)
[2021-05-03] MEDS: risperiDONE 1 MG TAB PO SCH ×2 (10:48→20:57)
[2021-05-03] MEDS: FAMOTIDINE (10MG/ML) 2ML VL IV SCH (10:48)
[2021-05-03 13:00] VITALS: BP 144/74
[2021-05-03] MEDS: LORazepam 2MG/ML-1ML VIAL IV PRN (13:46)
[2021-05-03] MEDS: HYDROcodone-ACET 5/325MG TAB PO PRN (14:52)
[2021-05-03] MEDS: ENOXAPARIN SOD 40 MG/0.4 ML SYRINGE SC SCH (16:25)
[2021-05-03 17:00] VITALS: BP 139/78
[2021-05-03 22:06] VITALS: BP 139/76
[2021-05-04] VITALS (13 sets, daily range): BP systolic 101–148; BP diastolic 72–94
[2021-05-04] MEDS ORDERED: HALOPERIDOL LACTATE 5 MG/ML INJ VIAL IM ONE (01:00)
[2021-05-04] MEDS ORDERED: HALOPERIDOL LACTATE 5 MG/ML INJ VIAL IM PRN (01:15)
[2021-05-04] MEDS: HYDROcodone-ACET 5/325MG TAB PO PRN (02:06)
[2021-05-04] MEDS: SODIUM CHLOR 0.9% PF (SALINE LOCK) 10ML VIAL/SYR IV SCH ×2 (05:08→11:00)
[2021-05-04] MEDS: busPIRone HCL 10 MG TAB PO SCH ×2 (06:00→13:00)
[2021-05-04 06:37] LABS: INR 1.13 (0.9-1.15); Partial Thromboplastin Time 25.3 sec (23.6-33.0)
[2021-05-04] MEDS ORDERED: fentaNYL CITRATE 100 MCG/2 ML VL IV ONE (09:00)
[2021-05-04] MEDS ORDERED: MIDAZOLAM HCL 2MG/2ML 2ml VIAL (1mg/ml) IV ONE (09:00)
[2021-05-04] MEDS: FAMOTIDINE (10MG/ML) 2ML VL IV SCH (09:45)
[2021-05-04] MEDS: ENOXAPARIN SOD 40 MG/0.4 ML SYRINGE SC SCH (10:00)
[2021-05-04] MEDS ORDERED: HYDROmorphone HCL 2 MG/ML VL IV ONE (10:45)
[2021-05-04] MEDS: predniSONE 20 MG TAB PO SCH (12:59)
[2021-05-04] MEDS: OLANZapine 5 MG TAB PO SCH (13:00)
[2021-05-04] MEDS: risperiDONE 1 MG TAB PO SCH (13:00)
== END 2021-05-04 20:31 | disposition home or self-care (01) | DRG 166 ==
LOC: EDBD 19:08 → ER 19:08 → OVERFLOW 04-30 05:32 → WEST WING 04-30 08:56
PROVIDERS: ADMIT Nurse Practitioner Family; ATTEND Internal Medicine
PROC: 0PB13ZX Excision of 1 to 2 Ribs, Percutaneous Approach, Diagnostic (ICD-10-PCS; principal; 2021-05-04)
DX: C34.90 Malignant neoplasm of unspecified part of unspecified bronchus or lung (principal); J69.0 Pneumonitis due to inhalation of food and vomit; L03.313 Cellulitis of chest wall; C79.51 Secondary malignant neoplasm of bone; K86.1 Other chronic pancreatitis; K86.89 Other specified diseases of pancreas; E88.09 Other disorders of plasma-protein metabolism, not elsewhere classified; M89.8X8 Other specified disorders of bone, other site; F17.210 Nicotine dependence, cigarettes, uncomplicated; J43.9 Emphysema, unspecified; F20.9 Schizophrenia, unspecified; I10 Essential (primary) hypertension; F32.A Depression, unspecified; Z20.822 Contact with and (suspected) exposure to COVID-19; K21.9 Gastro-esophageal reflux disease without esophagitis; R91.8 Other nonspecific abnormal finding of lung field; W57.XXXA Bitten or stung by nonvenomous insect and other nonvenomous arthropods, initial encounter; R21 Rash and other nonspecific skin eruption; L98.9 Disorder of the skin and subcutaneous tissue, unspecified; Z82.3 Family history of stroke; Z88.5 Allergy status to narcotic agent; Z88.0 Allergy status to penicillin; Z91.041 Radiographic dye allergy status; Y92.89 Other specified places as the place of occurrence of the external cause; Y99.8 Other external cause status
CPT/HCPCS: 10022; 36415; 71045; 71250; 74176; 77012; 78306; 80048; 80053; 80202; 81001; 83605; 85025; 85610; 85652; 85730; 86850; 86900; 86901; 87077; 87186; 87205; 87426; 96365; 96366; 96367; G0378; J2405; J2543; J3490; Q0162

== ENCOUNTER 2021-08-04 12:44 | Emergency (ER) | payer OTHER, MEDICAID ==
[~2021-08-04] VITALS: Ht 195.6 cm; Wt 105.2 kg
[~2021-08-04 12:44] MED LIST changes: +BENZ1TAB2 PO; +BUSP10TA31 PO; -DIPH25CA66 PO; -HYDR1CAP27 PO; +IBUP800T26 PO; +LOSA-69 PO; +LUMA42CA PO; -MAGN241.4 PO; -MIRT1TAB38 PO; +MIRT1TAB39 PO; -OLAN1TAB19 PO; +OLAN20TA30 PO; +PALI234I IM; +QUET1TAB88 PO; +RISP1TAB63 PO; -RISP2TAB28 PO
[2021-08-04 13:00] VITALS: BP 155/73
[2021-08-04] MEDS ORDERED: CLIN300C8 PO (15:56)
[2021-08-04] MEDS ORDERED: BENZ100C19 PO (15:56)
[2021-08-04] MEDS ORDERED: ALBUAER3 IN (15:56)
== END 2021-08-04 17:11 | disposition home or self-care (01) ==
LOC: ER 12:50
DX: J20.9 Acute bronchitis, unspecified (principal); J44.0 Chronic obstructive pulmonary disease with (acute) lower respiratory infection; F17.210 Nicotine dependence, cigarettes, uncomplicated; K21.9 Gastro-esophageal reflux disease without esophagitis; I10 Essential (primary) hypertension; Z20.822 Contact with and (suspected) exposure to COVID-19
CPT/HCPCS: 36415; 71045; 87426

== ENCOUNTER 2021-08-04 22:01 | Emergency (ER) | payer OTHER, MEDICAID ==
[~2021-08-04] VITALS: Ht 188 cm; Wt 77.1 kg
[~2021-08-04 22:01] MED LIST changes: +ALBUAER3 IN; +BENZ100C19 PO; +CLIN300C8 PO
[2021-08-04 22:31] VITALS: BP 165/92
== END 2021-08-05 09:32 | disposition home or self-care (01) ==
LOC: EDBD 22:01 → ER 22:05
DX: F41.9 Anxiety disorder, unspecified (principal); J44.9 Chronic obstructive pulmonary disease, unspecified; K21.9 Gastro-esophageal reflux disease without esophagitis; I10 Essential (primary) hypertension; F17.210 Nicotine dependence, cigarettes, uncomplicated; Z88.0 Allergy status to penicillin; Z91.018 Allergy to other foods

== ENCOUNTER 2021-09-22 19:22 | Emergency (ER) | payer OTHER, MEDICAID ==
[~2021-09-22] VITALS: Ht 180.3 cm; Wt 86.2 kg
[~2021-09-22 19:22] MED LIST changes: -CLIN300C8 PO
[2021-09-22 20:18] LABS: Basophils # (auto) 0 10 ^3/uL (0-0.2); Basophils % (auto) 0.4 % (0.0-2.0); Eosinophils # (auto) 0.5 10 ^3/uL (0-0.8); Eosinophils % (auto) 7.5 % (0.0-7.0); Hematocrit 35.2 % (41.0-53.0); Hemoglobin 11.7 g/dL (13.5-17.5); Lymphocytes # (auto) 1.1 10 ^3/uL (0.4-5.4); Mean Corpuscular Hemoglobin 30.3 pg (28.0-32.0); Mean Corpuscular Hgb Conc. 33.2 g/dL (32.0-36.0); Mean Corpuscular Volume 91.2 fL (80.0-100.0); Monocytes # (auto) 0.9 10 ^3/uL (0-1.3); Monocytes % (auto) 14.2 % (0.0-12.0); Neutrophils # (auto) 3.7 10 ^3/uL (1.6-8.6); Neutrophils % (auto) 59.9 % (37.0-80.0); Nucleated Red Blood Cells % 0.1 %; Red Blood Cells 3.85 10^6/uL (4.5-5.90); White Blood Cell 6.2 10^3/uL (4.4-10.8)
[2021-09-22 20:35] LABS: Albumin 2.9 g/dL (3.4-5.0); Calcium 8.6 mg/dL (8.5-10.1); Potassium 3.6 mmol/L (3.5-5.1)
[2021-09-22 20:39] LABS: BUN/Creatinine Ratio 18.3; Bilirubin, Total 0.2 mg/dL (0.2-1.0); Total Protein 6.1 g/dL (6.4-8.2)
[2021-09-22 21:38] LABS: INR 1.31 (0.9-1.15)
[2021-09-22 21:50] VITALS: BP 141/65
== END 2021-09-22 21:56 | disposition home or self-care (01) ==
LOC: EDBD 19:22 → ER 19:22
DX: K92.2 Gastrointestinal hemorrhage, unspecified (principal); J44.9 Chronic obstructive pulmonary disease, unspecified; K21.9 Gastro-esophageal reflux disease without esophagitis; I10 Essential (primary) hypertension; F17.210 Nicotine dependence, cigarettes, uncomplicated; Z88.0 Allergy status to penicillin; Z88.6 Allergy status to analgesic agent; Z91.013 Allergy to seafood
CPT/HCPCS: 36415; 80053; 85025; 85610; 86850; 86900; 86901; 93005